=== PATIENT | male | born 1945 | race Caucasian/White ===

== ENCOUNTER 2018-10-30 09:18 | Emergency (ER) | payer MEDICARE, OTHER ==
--- NOTE | 2018-10-30 09:24 | ER Document Report ---
ED Medical Screen (RME) - General Chief Complaint: S/S of Possible Stroke Stated Complaint: POSSIBLE STROKE Time Seen by Provider: 10/30/18 09:22 Mode of Arrival: Ambulatory Information source: Patient TRAVEL OUTSIDE OF THE [place] IN LAST 30 DAYS: No - HPI Patient complains to provider of: L arm and face numbness Onset: Just prior to arrival - pt. has h/o tia and went to bed feeling fine but woke up with L arm and facial numbness Doctor's Discharge - Discharge Referrals: LAURA MONTES MD [Primary Care Provider] - Follow up as needed
--- NOTE | 2018-10-30 09:42 | ER Document Report ---
ED Neuro Symptoms/Deficit - General Mode of Arrival: Ambulatory TRAVEL OUTSIDE OF THE [place] IN LAST 30 DAYS: No <ANN BENITEZ - Last Filed: 10/30/18 10:09> - General Notes: This 72-year-old male patient with a past history of type 2 diabetes, hypertension, hyperlipidemia, who reports a TIA 10 years ago, states he woke up at 7:00 this morning and noted left-sided numbness and weakness to his face and arm and when he tried to stand up felt off balance and felt like he would fall to the left. He thinks it was due to weakness to the left lower extremity. He also said he had a dizzy sensation. At this time most of those symptoms have cleared and he has a small amount of numbness in the left hand around the second and third metacarpal heads. Exam shows no facial motor weakness, no speech problems. No thought concentrat ion problems. The left upper extremity is slightly weaker than the right when it is held out against resistance, the left lower extremity is similarly slightly weaker and takes more effort to hold up against resistance compared to the right. He does report that his symptoms do seem to be much better now than they were when he first woke up. He is not a TPA candidate due to the rapidly resolving motor deficits that he originally reported. <LÓPEZ HOLBROOK - Last Filed: 10/30/18 14:32> - General Chief Complaint: S/S of Possible Stroke Stated Complaint: POSSIBLE STROKE Time Seen by Provider: 10/30/18 09:22 - Related Data Allergies/Adverse Reactions: No Known Allergies Allergy (Verified 10/30/18 09:45) Past Medical History - General Information source: Patient - Social History Smoking Status: Former Smoker - quit x30-40 years ago Frequency of alcohol use: Rare Family History: Reviewed & Not Pertinent - Medical History Notes: Right sided weakness in December 2008 with normal MRI and MRA of [place] - Past Medical History Cardiac Medical History: Reports: Hx Hypercholesterolemia, Hx Hypertension Neurological Medical History: Reports: Other - Hx TIA Endocrine Medical History: Reports: Hx Diabetes Mellitus Type 2 <ANN BENITEZ - Last Filed: 10/30/18 10:09> Review of Systems - Review of Systems Constitutional: No symptoms reported EENT: No symptoms reported Cardiovascular: See HPI, Dizziness Respiratory: No symptoms reported Gastrointestinal: No symptoms reported Genitourinary: No symptoms reported Male Genitourinary: No symptoms reported Musculoskeletal: No symptoms reported Skin: No symptoms reported Hematologic/Lymphatic: No symptoms reported Neurological/Psychological: See HPI, Weakness - Initially left leg, arm, and face. nearly completely resolved now., Numbness - left -: Yes All other systems reviewed and negative <ANN BENITEZ - Last Filed: 10/30/18 10:09> Physical Exam - Vital signs Vitals: Pulse Resp BP Pulse Ox 82 22 H 148/92 H 98 10/30/18 09:35 10/30/18 09:35 10/30/18 09:35 10/30/18 09:35 - Notes Notes: Physical Exam: General: Alert, appears well. HEENT: Normocephalic. Atraumatic. PERRL. Extraocular movements intact. Oropharynx clear. No carotid bruits. Neck: Supple. Non-tender. Respiratory: No respiratory distress. Clear and equal breath sounds bilaterally. Cardiovascular: Regular rate and rhythm. Abdominal: Normal Inspection. Non-tender. No distension. Normal Bowel Sounds. Back: Non-tender. No deformity or step off. Extremities: Moves all four extremities. Upper extremities: Normal inspection. Normal ROM. Lower extremities: Normal inspection. No edema. Normal ROM. Neurological: Normal cognition. AAOx4. Normal speech. Cranial nerves II through XII grossly intact bilaterally. [id number] test intact bilaterally. The left upper extremity is slightly weaker than the right when it is held out against resistance, the left lower extremity is similarly slightly weaker and takes more effort to hold up against resistance compared to the right. He does report that his symptoms do seem to be much better now than they were when he first woke up. Psychological: Normal affect. Normal Mood. Skin: Warm. Dry. Normal color. <ANN BENITEZ - Last Filed: 10/30/18 10:09> - Vital signs Vitals: Temp Pulse Resp BP Pulse Ox 97.8 F 79 22 H 148/92 H 98 10/30/18 09:35 10/30/18 09:35 10/30/18 09:35 10/30/18 09:35 10/30/18 09:35 <LÓPEZ HOLBROOK - Last Filed: 10/30/18 14:32> Course - Vital Signs Vital signs: Temp Pulse Resp BP Pulse Ox 82 22 H 148/92 H 98 10/30/18 09:35 10/30/18 09:35 10/30/18 09:35 10/30/18 09:35 - Laboratory Result Diagrams: 10/30/18 09:33 10/30/18 09:33 <ANN BENITEZ - Last Filed: 10/30/18 10:09> - Re-evaluation Re-evalutation: 10/30/18 14:31 Transport is here for the patient at this time. His vital signs are stable. His exam remains essentially unchanged from earlier where he has only very subtl e left-sided weakness. He is stable for transport. - Vital Signs Vital signs: Temp Pulse Resp BP Pulse Ox 97.8 F 79 17 148/92 H 98 10/30/18 09:35 10/30/18 09:35 10/30/18 09:35 10/30/18 09:35 10/30/18 09:35 - Laboratory Result Diagrams: 10/30/18 09:33 10/30/18 09:33 - Diagnostic Test Radiology reviewed: Image reviewed, Reports reviewed - CT of the brain is unremarkable. MRI of the brain shows multiple areas of acute infarction in the right hemisphere indicating embolic phenomena. There is mild microvascular ischemia. - EKG Interpretation by [place] EKG shows normal: Sinus rhythm, [place], Intervals, ST-T Waves. abnormal: QRS Complexes - Old inferior Q's Rate: Normal - 80 Rhythm: NSR When compared to previous EKG there are: Previous EKG unavailable - Consults Dr. Angelo Time consulted: 12:00 Consulted provider: other - Will accept at [facility]. Continue any antiplatelet therapy the patient has been on, no new antiplatelet or anticoagulant medication for now. <LÓPEZ HOLBROOK - Last Filed: 10/30/18 14:32> Critical Care Note - Critical Care Note Total time excluding time spent on procedures (mins): 40 <LÓPEZ HOLBROOK - Last Filed: 10/30/18 14:32> ED [employer]/Exc Criteria ED NIH Stroke Scale Discharge <ANN BENITEZ - Last Filed: 10/30/18 10:09> - Discharge Scribe Attestation: 10/30/18 10:08 I personally performed the services described in the documentation, reviewed and edited the documentation which was dictated to the scribe in my presence, and it accurately records my words and actions. <LÓPEZ HOLBROOK - Last Filed: 10/30/18 14:32> - Discharge Clinical Impression: Acute cerebrovascular accident (CVA) Condition: Stable Disposition: [facility] Referrals: LAURA MONTES MD [NO LOCAL MD] - Follow up as needed Scribe Documentation - Scribe Written by Scribe:: Tasia Chappell, 10/30/2018 [id number] acting as scribe for :: Ponce <ANN BENITEZ - Last Filed: 10/30/18 10:09>
--- NOTE | 2018-10-30 09:45 | RADIOLOGY REPORT (SQ) ---
EXAM DESCRIPTION: CHEST SINGLE VIEW COMPLETED DATE/TIME: 10/30/2018 9:31 am REASON FOR STUDY: stroke alert COMPARISON: 12/22/2008 EXAM PARAMETERS: NUMBER OF VIEWS: One view. TECHNIQUE: Single frontal radiographic view of the chest acquired. RADIATION DOSE: NA LIMITATIONS: None. FINDINGS: LUNGS AND PLEURA: No opacities, masses or pneumothorax. No pleural effusion. MEDIASTINUM AND HILAR STRUCTURES: No masses. Contour normal. HEART AND VASCULAR STRUCTURES: Heart normal in size. Normal vasculature. BONES: No acute findings. HARDWARE: None in the chest. OTHER: No other significant finding. IMPRESSION: NO ACUTE RADIOGRAPHIC FINDING IN THE CHEST. TECHNICAL DOCUMENTATION: JOB ID: [id number] [employer]- All Rights Reserved Reading location - IP/workstation name: [email or web address]
[2018-10-30 09:50] LABS: HEMATOCRIT 43.6 % (37.9-51.0); HEMOGLOBIN 14.8 g/dL (13.5-17.0); MEAN CORPUSCULAR HEMOGLOBIN 30.9 pg (27.0-33.4); MEAN CORPUSCULAR VOLUME 91 fl (80-97); PLATELET COUNT 258 10^3/uL (150-450); RED BLOOD COUNT 4.79 10^6/uL (4.35-5.55); RED CELL DISTRIBUTION WIDTH 13.7 % (11.5-14.0); WHITE BLOOD COUNT 4.7 10^3/uL (4.0-10.5)
--- NOTE | 2018-10-30 09:50 | RADIOLOGY REPORT (SQ) ---
EXAM DESCRIPTION: CT HEAD WITHOUT COMPLETED DATE/TIME: 10/30/2018 9:27 am REASON FOR STUDY: stroke alert COMPARISON: 12/22/2008 TECHNIQUE: Axial images acquired through the brain without intravenous contrast. Images reviewed wi th bone, brain and subdural windows. Images stored on PACS. All CT scanners at this facility use dose modulation, iterative reconstruction, and/or weight based d osing when appropriate to reduce radiation dose to as low as reasonably achievable (ALARA). [facility]: Dose Right [facility]: CareDose [facility]: Dose Right [facility]: Teradose 4D [facility]: [employer] RADIATION DOSE: CT Rad equipment meets quality standard of care and radiation dose reduction techniq ues were employed. CTDIvol: 53.2 mGy. DLP: 1044 mGy-cm. mGy. LIMITATIONS: None. FINDINGS: VENTRICLES: Normal size and contour. CEREBRUM: No masses. No hemorrhage. No midline shift. No evidence for acute infarction. Normal gra y/white matter differentiation. No areas of low density in the white matter. CEREBELLUM: No masses. No hemorrhage. No alteration of density. No evidence for acute infarction. EXTRAAXIAL SPACES: No fluid collections. No masses. ORBITS AND GLOBE: No intra- or extraconal masses. Normal contour of globe without masses. CALVARIUM: No fracture. PARANASAL SINUSES: Retention cyst in the floor both maxillary antra. SOFT TISSUES: No mass or hematoma. OTHER: No other significant finding. IMPRESSION: NORMAL CT OF THE BRAIN WITHOUT CONTRAST. EVIDENCE OF ACUTE STROKE: NO. The findings were reported by phone to Dr. Mcintosh at 0941 hours. COMMENT: Quality ID # [id number]: Final reports with documentation of one or more dose reduction techniques (e.g., Automated exposure control, adjustment of the mA and/or kV according to patient size, use of iterative reconstruction technique) TECHNICAL DOCUMENTATION: JOB ID: [id number] 2010 [employer]- All Rights Reserved Reading location - IP/workstation name: [email or web address]
[2018-10-30 09:58] LABS: ALANINE AMINOTRANSFERASE 46 U/L (21-72); ALBUMIN 4.4 g/dL (3.5-5.0); ALKALINE PHOSPHATASE 99 U/L (38-126); ANION GAP 10 (5-19); ASPARTATE AMINO TRANSFERASE 28 U/L (17-59); BILIRUBIN,DIRECT 0.3 mg/dL (0.0-0.4); BILIRUBIN,TOTAL 0.6 mg/dL (0.2-1.3); BLOOD UREA NITROGEN 20 mg/dL (7-20); CALCIUM 9.8 mg/dL (8.4-10.2); CARBON DIOXIDE 24 mmol/L (22-30); CHLORIDE 107 mmol/L (98-107); GLUCOSE 196 mg/dL (75-110); POTASSIUM 4.6 mmol/L (3.6-5.0); SODIUM 141.3 mmol/L (137-145); TOTAL PROTEIN 6.8 g/dL (6.3-8.2)
[2018-10-30 10:02] LABS: CREATINE KINASE < 20 U/L (55-170)
[2018-10-30 10:07] LABS: ABSOLUTE LYMPHOCYTES# (MANUAL) 1.6 10^3/uL (0.5-4.7); ABSOLUTE MONOCYTES # (MANUAL) 0.4 10^3/uL (0.1-1.4); ABSOLUTE NEUTROPHILS# (MANUAL) 2.5 10^3/uL (1.7-8.2); BASOPHILS % (MANUAL) 0 % (0-2); EOSINOPHILS % (MANUAL) 5 % (0-6); LYMPHOCYTES % (MANUAL) 33 % (13-45); MONOCYTES % (MANUAL) 8 % (3-13); SEGMENTED NEUTROPHILS % (MAN) 54 % (42-78); TOTAL CELLS COUNTED 100
[2018-10-30 10:08] LABS: INTERNATIONAL RATION (INR) 0.94
[2018-10-30 10:08] LABS: PLATELET COMMENT ADEQUATE
[2018-10-30 10:09] LABS: PARTIAL THROMBOPLASTIN TIME 29.2 SEC (23.5-35.8)
[2018-10-30 10:10] LABS: CREATINE KINASE MB 1.27 ng/mL (<4.55)
[2018-10-30 10:11] LABS: TROPONIN I < 0.012 ng/mL
--- NOTE | 2018-10-30 10:46 | RADIOLOGY REPORT (SQ) ---
EXAM DESCRIPTION: MRI HEAD WITHOUT COMPLETED DATE/TIME: 10/30/2018 10:34 am REASON FOR STUDY: Acute left-sided weakness COMPARISON: CT same date TECHNIQUE: Multiplanar imaging includes non-contrasted T1, T2, FLAIR, and Diffusion with ADC map seq uences. Images stored on PACS. LIMITATIONS: None. FINDINGS: ANATOMY: No anomalies. Normal vascular flow voids. Pituitary fossa normal. CSF SPACES: Normal in size and contour. No hemorrhage. CEREBRUM: A few high-signal intensity lesions scattered throughout the white matter on FLAIR imaging with distribution suggesting chronic micro-vascular ischemic change. Sulci and gyri normal in size a nd contour. No evidence of hemorrhage, mass or extraaxial fluid collection. POSTERIOR FOSSA: Mild zachery small vessel ischemia. . No hemorrhage. No edema, masses or mass effect. Internal auditory canals, cerebello-pontine angles, mastoids normal. DIFFUSION: There are multiple areas of restricted diffusion throughout the right hemisphere. ORBITS: No masses. Globes normal. PARANASAL SINUSES: No fluid levels. Mucosa normal. OTHER: No other significant finding. IMPRESSION: Multiple areas of acute infarction in the right hemisphere indicating embolic phenomena. Mild microvascular ischemia. EVIDENCE OF ACUTE STROKE: YES. Embolic TECHNICAL DOCUMENTATION: JOB ID: [id number] [employer]- All Rights Reserved Reading location - IP/workstation name: [email or web address]
[2018-10-30] MEDS ORDERED: ASPIRIN 81 MG TABLET, CHEWABLE PO ONE (12:08)
[2018-10-30] MEDS ORDERED: NORMAL SALINE 1000 ML 1,000 ML IV ONE (12:09)
[2018-10-30 14:51] VITALS: BP 148/98
--- NOTE | 2018-10-30 15:07 | EKG REPORT ---
SEVERITY:- ABNORMAL ECG - SINUS RHYTHM PROBABLE INFERIOR INFARCT, OLD : Confirmed by: Jeovanny Mcarthur MD 30-Oct-2018 15:06:39
== END 2018-10-30 14:40 | disposition short-term general hospital (02) ==
LOC: ER 09:18
DX: I63.9 Cerebral infarction, unspecified (principal); R53.1 Weakness; R42 Dizziness and giddiness; E11.9 Type 2 diabetes mellitus without complications; I10 Essential (primary) hypertension; E78.5 Hyperlipidemia, unspecified; Z86.73 Personal history of transient ischemic attack (TIA), and cerebral infarction without residual deficits; Z87.891 Personal history of nicotine dependence
CPT/HCPCS: 93005; 99291; 96360; 36415; 82553; 82550; 85025; 85610; 85730; 80053; 84484; 70551; 71045; 70450; 93010; A9270; J7030

== ENCOUNTER → 2018-12-01 | Outpatient (CLI) | payer MEDICARE, OTHER ==
--- NOTE | 2018-12-01 13:40 | RADIOLOGY REPORT (SQ) ---
EXAM DESCRIPTION: KUB COMPLETED DATE/TIME: 12/01/2018 1:25 pm REASON FOR STUDY: HEMATURIA, UNSPECIFIED R31.9 HEMATURIA, UNSPECIFIED COMPARISON: None. NUMBER OF VIEWS: One view. TECHNIQUE: Supine radiographic image of the abdomen acquired. LIMITATIONS: None. FINDINGS: BOWEL GAS PATTERN: Normal bowel gas pattern. No dilated loops. CALCIFICATIONS: Staghorn calculus in lower calices of the right kidney. SOFT TISSUES: No gross mass or suggestion of organomegaly. HARDWARE: None in the abdomen. BONES: No acute fracture. No worrisome bone lesions. OTHER: No other significant finding. IMPRESSION: Right staghorn calculus. TECHNICAL DOCUMENTATION: JOB ID: [id number] [employer]- All Rights Reserved Reading location - IP/workstation name: [email or web address]
== END ==
LOC: OD 13:12
PROVIDERS: ATTEND Physician Assistant
DX: R31.9 Hematuria, unspecified (principal)
CPT/HCPCS: 74018

== ENCOUNTER → 2018-12-02 | Outpatient (CLI) | payer MEDICARE, OTHER ==
[2018-12-02 10:37] LABS: ALANINE AMINOTRANSFERASE 31 U/L (21-72); ALBUMIN 4.3 g/dL (3.5-5.0); ALKALINE PHOSPHATASE 94 U/L (38-126); ANION GAP 11 (5-19); ASPARTATE AMINO TRANSFERASE 19 U/L (17-59); BILIRUBIN,DIRECT 0.3 mg/dL (0.0-0.4); BILIRUBIN,TOTAL 0.8 mg/dL (0.2-1.3); BLOOD UREA NITROGEN 20 mg/dL (7-20); CALCIUM 10.3 mg/dL (8.4-10.2); CARBON DIOXIDE 26 mmol/L (22-30); CHLORIDE 101 mmol/L (98-107); GLUCOSE 276 mg/dL (75-110); POTASSIUM 4.8 mmol/L (3.6-5.0); SODIUM 137.9 mmol/L (137-145); TOTAL PROTEIN 6.5 g/dL (6.3-8.2)
== END ==
LOC: OD 09:14
PROVIDERS: ATTEND Physician Assistant
DX: E11.9 Type 2 diabetes mellitus without complications (principal)
CPT/HCPCS: 36415; 80053

== ENCOUNTER 2019-06-12 16:38 | Inpatient (IN) | payer MEDICARE, OTHER ==
[2019-06-12] MEDS ORDERED: NORMAL SALINE 1000 ML 1,000 ML IV ONE (17:29)
[2019-06-12] MEDS ORDERED: CEFAZOLIN 1 GM/D5W RTU 1 GM/50 ML RTUPB IV ONE (17:32)
[2019-06-12] MEDS ORDERED: METRONIDAZOLE 500 MG/NS RTU 500 MG/100 ML RTUPB IV ONE (17:44)
--- NOTE | 2019-06-12 18:01 | ER Document Report ---
ED GI/ - General Chief Complaint: Lower Abdominal Pain Stated Complaint: RIGHT LOW ABDOMINAL PAIN Time Seen by Provider: 06/12/19 17:15 Primary Care Provider: NELI PAYAN PA-C [Primary Care Provider] - Follow up as needed Notes: Patient had an outpatient CT scan with IV and oral contrast as an outpatient today which showed a ruptured appendix with a 2.5 cm abscess. Patient says that he has been having some abdominal pains off and on over the last 2 to 3 weeks, but was traveling around [place] and did not get back home until just 3 days ago. Over the weekend, his pain is intensified. He went to see his primary care provider today who ordered the outpatient study showing the ruptured appendix. Patient has not had any nausea or vomiting. No change in bowel habits. No fevers. Last food was about 10:30 AM this morning. No prior abdominal surgeries. No allergies. TRAVEL OUTSIDE OF THE [place] IN LAST 30 DAYS: No COUNTRY TRAVELED TO/FROM: [place]/[facility] - Related Data Allergies/Adverse Reactions: No Known Allergies Allergy (Verified 06/12/19 16:39) Past Medical History - Social History Smoking Status: Unknown if Ever Smoked Family History: Reviewed & Not Pertinent - Past Medical History Cardiac Medical History: Reports: Hx Hypercholesterolemia, Hx Hypertension Endocrine Medical History: Reports: Hx Diabetes Mellitus Type 2 Past Surgical History: Reports: Hx Orthopedic Surgery - Right TKR Review of Systems - Review of Systems Notes: REVIEW OF SYSTEMS: CONSTITUTIONAL : Denies fever. EENT: Denies eye, ear, nose or mouth or throat pain or other symptoms. CARDIOVASCULAR: Denies chest pain. RESPIRATORY: Denies cough, chest congestion, or shortness of breath. GASTROINTESTINAL: See HPI. GENITOURINARY: Denies difficulty or painful urinating, urinary frequency, blood in urine. MUSCULOSKELETAL: Denies back or neck pain. Denies joint pain or swelling. SKIN: Denies rash or skin lesions. NEUROLOGICAL: Denies LOC or altered mental status. Denies headache. Denies sensory loss or motor deficits. ALL OTHER SYSTEMS REVIEWED AND NEGATIVE. Physical Exam - Vital signs Vitals: Temp Pulse Resp BP Pulse Ox 97.9 F 87 18 136/66 H 97 06/12/19 16:43 06/12/19 16:43 06/12/19 16:43 06/12/19 16:43 06/12/19 16:43 Interpretation: Normal. No: Febrile Notes: PHYSICAL EXAMINATION: GENERAL: Well-appearing, in no acute distress. Vital signs are all normal. Patient appears to be in good health and younger than his stated age. HEAD: Atraumatic, normocephalic. EYES: Pupils equal round and reactive to light, extraocular movements intact. ENT: oropharynx clear without exudates. Moist mucous membranes. NECK: Normal range of motion, supple. LUNGS: Breath sounds clear and equal bilaterally. HEART: Regular rate and rhythm without murmurs. ABDOMEN: Soft, tender in the right lower quadrant, in particular specifically over McBurney's point, very tender to touch at all. Some guarding present. No rebound. No masses felt. No bruits heard. EXTREMITIES: Normal range of motion without pain. NEUROLOGICAL: Normal speech, normal gait. Normal sensory, motor, and reflex exams. Awake, alert, and oriented x3. PSYCH: Normal mood, normal affect. SKIN: Warm, dry, no rashes. Course - Re-evaluation Re-evalutation: 06/12/19 18:[address] Campbell, surgeon fabrication inspector, and he will see the patient. Lab studies are being ordered. Patient is being given Ancef and Flagyl. N.p.o. 06/12/19 19:[address] Campbell and will be admitted for IV antibiotics. - Vital Signs Vital signs: Temp Pulse Resp BP Pulse Ox 97.9 F 87 17 137/88 H 95 06/12/19 16:43 06/12/19 16:43 06/12/19 18:01 06/12/19 18:01 06/12/19 18:01 - Laboratory Result Diagrams: 06/12/19 17:25 06/12/19 17:25 Laboratory results interpreted by me: 06/12/19 06/12/19 17:25 17:25 RBC 3.99 L Hgb 11.8 L Hct 34.9 L RDW 14.2 H Glucose 132 H Total Protein 5.8 L Albumin 3.3 L Discharge - Discharge Clinical Impression: Ruptured appendix, Appendicitis with abscess Condition: Stable Disposition: ADMITTED INPATIENT Admitting Provider: Surgicalist Unit Admitted: Surgical Floor Referrals: NELI PAYAN PA-C [Primary Care Provider] - Follow up as needed
[2019-06-12 18:19] LABS: ABSOLUTE EOSINOPHILS # (AUTO) 0.1 10^3/uL (0.0-0.6); ABSOLUTE LYMPHOCYTES (AUTO) 1.5 10^3/uL (0.5-4.7); ABSOLUTE MONOCYTES (AUTO) 0.5 10^3/uL (0.1-1.4); ABSOLUTE NEUT (AUTO) 3.1 10^3/uL (1.7-8.2); BASOPHILS % (AUTO) 0.9 % (0-2); EOSINOPHILS % (AUTO) 2.5 % (0-6); HEMATOCRIT 34.9 % (37.9-51.0); HEMOGLOBIN 11.8 g/dL (13.5-17.0); LYMPHOCYTES % (AUTO) 27.8 % (13-45); MEAN CORPUSCULAR HEMOGLOBIN 29.5 pg (27.0-33.4); MEAN CORPUSCULAR HGB CONC 33.7 g/dL (32.0-36.0); MEAN CORPUSCULAR VOLUME 88 fl (80-97); MONOCYTES % (AUTO) 9.1 % (3-13); PLATELET COUNT 379 10^3/uL (150-450); RED BLOOD COUNT 3.99 10^6/uL (4.35-5.55); RED CELL DISTRIBUTION WIDTH 14.2 % (11.5-14.0); SEGMENTED NEUTROPHILS % (AUTO) 59.7 % (42-78); TOTAL CELLS COUNTED % (AUTO) 100 %; WHITE BLOOD COUNT 5.3 10^3/uL (4.0-10.5)
[2019-06-12 18:49] LABS: ALBUMIN 3.3 g/dL (3.5-5.0); ALKALINE PHOSPHATASE 85 U/L (38-126); ANION GAP 11 (5-19); ASPARTATE AMINO TRANSFERASE 17 U/L (17-59); BILIRUBIN,DIRECT 0.2 mg/dL (0.0-0.4); BILIRUBIN,TOTAL 0.2 mg/dL (0.2-1.3); BLOOD UREA NITROGEN 15 mg/dL (7-20); CALCIUM 9.5 mg/dL (8.4-10.2); CARBON DIOXIDE 27 mmol/L (22-30); CHLORIDE 101 mmol/L (98-107); GLUCOSE 132 mg/dL (75-110); POTASSIUM 4.3 mmol/L (3.6-5.0); TOTAL PROTEIN 5.8 g/dL (6.3-8.2)
[2019-06-12 19:01] LABS: APPEARANCE,URINE CLEAR; BILIRUBIN,URINE NEGATIVE (NEGATIVE); COLOR,URINE YELLOW; GLUCOSE, URINE 50 mg/dL (NEGATIVE); KETONES,URINE NEGATIVE (NEGATIVE); LEUKOCYTE ESTERASE,URINE TRACE (NEGATIVE); NITRITE,URINE NEGATIVE (NEGATIVE); PROTEIN,URINE NEGATIVE (NEGATIVE); URINE SPECIFIC GRAVITY 1.055; UROBILINOGEN,URINE NEGATIVE mg/dL (<2.0)
[2019-06-12] MEDS ORDERED: POTASSI CL 20 MEQ/D5-1/2NS 1L 1,000 ML IV PRN (19:26)
[2019-06-12] MEDS ORDERED: MORPHINE SULFATE 10 MG/ML INJ IV PRN (19:26)
[2019-06-12] MEDS ORDERED: ACETAMINOPHEN 325 MG TABLET PO PRN (19:26)
--- NOTE | 2019-06-12 19:26 | PDOC H&P ---
History of Present Illness Admission Date/PCP: 06/12/19 19:13 NELI PAYAN PA-C Patient complains of: abdominal pain History of Present Illness: HALEY KENNEDY is a 73 year old malePatient had an outpatient CT scan with IV and oral contrast as an outpatient today which showed a ruptured appendix with a 2.5 cm abscess. Patient says that he has been having some abdominal pains off and on over the last 2 to 3 weeks, but was traveling around [place] and did not get back home until just 3 days ago. Over the weekend, his pain is intensified. He went to see his primary care provider today who ordered the outpatient study showing the ruptured appendix. Patient has not had any nausea or vomiting. No change in bowel habits. No fevers. Last food was about 10:30 AM this morning. No prior abdominal surgeries Past Medical History Cardiac Medical History: Reports: Hyperlipidema, Hypertension Endocrine Medical History: Reports: Diabetes Mellitus Type 2 Past Surgical History Past Surgical History: Reports: Orthopedic Surgery - Right TKR Social History Smoking Status: Unknown if Ever Smoked Family History Family History: Reviewed & Not Pertinent Parental Family History Reviewed: No Children Family History Reviewed: NA Sibling(s) Family History Reviewed.: NA Medication/Allergy Home Medications: Amlodipine Besylate [Norvasc 5 mg Tablet] 5 mg PO DAILY 10/30/18 Atorvastatin Calcium [Lipitor 20 mg Tablet] 20 mg PO QHS 10/30/18 Esomeprazole Magnesium 20 mg PO DAILY 10/30/18 Fexofenadine HCl 180 mg PO DAILY 10/30/18 Losartan Potassium 100 mg PO DAILY 10/30/18 Meloxicam [Mobic] 15 mg PO DAILY 10/30/18 Metformin HCl 500 mg PO DAILY 10/30/18 Allergies/Adverse Reactions: No Known Allergies Allergy (Verified 06/12/19 16:39) Review of Systems Constitutional: ABSENT: chills, fever(s), headache(s), weight gain, weight loss Eyes: ABSENT: visual disturbances Ears: ABSENT: hearing changes Cardiovascular: ABSENT: chest pain, dyspnea on exertion, edema, orthropnea, palpitations Respiratory: ABSENT: cough, hemoptysis Gastrointestinal: PRESENT: other - abdominal pain Musculoskeletal: ABSENT: joint swelling Integumentary: ABSENT: rash, wounds Neurological: ABSENT: abnormal gait, abnormal speech, confusion, dizziness, focal weakness, syncope Psychiatric: ABSENT: as per HPI, anxiety, depression, hallucinations, homidical ideation, suicidal ideation, other Hematologic/Lymphatic: ABSENT: easy bleeding, easy bruising Allergic/Immunologic: ABSENT: as per HPI, seasonal rhinorrhea, other Physical Exam Vital Signs: Temp Pulse Resp BP Pulse Ox 97.9 F 87 17 137/88 H 95 06/12/19 16:43 06/12/19 16:43 06/12/19 18:01 06/12/19 18:01 06/12/19 18:01 Intake & Output 06/11/19 06/12/19 06/13/19 06:59 06:59 06:59 Intake Total 50 Balance 50 Weight 90.2 kg General appearance: PRESENT: mild distress Head exam: PRESENT: normocephalic Eye exam: PRESENT: EOMI Mouth exam: PRESENT: moist Neck exam: PRESENT: full ROM Respiratory exam: PRESENT: clear to auscultation jorge Cardiovascular exam: PRESENT: RRR Pulses: PRESENT: normal radial pulses, normal femoral pulses, normal dorsalis pedis pul GI/Abdominal exam: PRESENT: tenderness - suprpubic, rlq Rectal exam: PRESENT: deferred Extremities exam: PRESENT: full ROM Musculoskeletal exam: PRESENT: full ROM Neurological exam: PRESENT: alert, awake, oriented to person Psychiatric exam: PRESENT: appropriate affect Skin exam: PRESENT: dry Results Laboratory Results: 06/12/19 17:25 06/12/19 17:25 06/12/19 06/12/19 06/12/19 17:25 17:25 17:44 WBC 5.3 RBC 3.99 L Hgb 11.8 L Hct 34.9 L MCV 88 MCH 29.5 MCHC 33.7 RDW 14.2 H Plt Count 379 Seg Neutrophils % 59.7 Lymphocytes % 27.8 Monocytes % 9.1 Eosinophils % 2.5 Basophils % 0.9 Absolute Neutrophils 3.1 Absolute Lymphocytes 1.5 Absolute Monocytes 0.5 Absolute Eosinophils 0.1 Absolute Basophils 0.0 Sodium 139.3 Potassium 4.3 Chloride 101 Carbon Dioxide 27 Anion Gap 11 BUN 15 Creatinine 0.91 Est GFR ( Amer) > 60 Est GFR (Non-Af Amer) > 60 Glucose 132 H Calcium 9.5 Total Bilirubin 0.2 AST 17 Alkaline Phosphatase 85 Total Protein 5.8 L Albumin 3.3 L Lipase 202.7 Urine Color YELLOW Urine Appearance CLEAR Urine pH 5.0 Ur Specific [place] 1.055 Urine Protein NEGATIVE Urine Glucose (UA) 50 H Urine Ketones NEGATIVE Urine Blood NEGATIVE Urine Nitrite NEGATIVE Ur Leukocyte Esterase TRACE H Urine WBC (Auto) 6 Urine RBC (Auto) 1 Assessment & Plan - Plan Summary Plan Summary: Impression ruptured appendicitis with this 2.5 cm abscess and 5 cm phlegmon I had a long discussion with the patient and his about immediate surgery versus delayed interval appendectomy with the risks of a possible colonic resection and currently the patient with minimal symptoms he is elected to undergo a delayed interval appendectomy therefore we will admit him to the hospital for IV antibiotics and observation
[2019-06-12] MEDS ORDERED: GLUCAGON,HUMAN RECOMB 1 MG INJ IM PRN (19:33)
[2019-06-12] MEDS ORDERED: DEXTROSE 50%-WATER 25 GM/50 ML DISP.SYRIN IV PRN ×2 (19:33)
[2019-06-12] MEDS ORDERED: DEXTROSE 40% GEL 15 GM TUBE PO PRN ×2 (19:33)
[2019-06-12] MEDS ORDERED: BISACODYL 10 MG SUPP.RECT PR ONE (20:30)
[2019-06-12] MEDS: FAMOTIDINE INJ/PF 20 MG/2 ML SDV IV SCH (21:41)
[2019-06-13] MEDS: PIPERACILLIN SODIUM/TAZOBACTAM 3.375 GM in NORMAL SALINE 100 ML IV SCH ×5 (00:19→23:56)
[2019-06-13] MEDS: INSULIN REG, HUMAN 100 UNIT/ML 3 ML VIAL (PYX) SUBCUT SCH ×4 (00:36→17:58)
[2019-06-13] MEDS: METRONIDAZOLE 500 MG/NS RTU 500 MG/100 ML RTUPB IV SCH ×3 (02:19→18:33)
[2019-06-13] MEDS ORDERED: PIPERACILLIN/TAZOBACTAM 3.375 GM VIAL IV ONE (05:18)
[2019-06-13 05:52] LABS: ABSOLUTE EOSINOPHILS # (AUTO) 0.1 10^3/uL (0.0-0.6); ABSOLUTE LYMPHOCYTES (AUTO) 1.5 10^3/uL (0.5-4.7); ABSOLUTE MONOCYTES (AUTO) 0.5 10^3/uL (0.1-1.4); ABSOLUTE NEUT (AUTO) 3.2 10^3/uL (1.7-8.2); BASOPHILS % (AUTO) 0.9 % (0-2); EOSINOPHILS % (AUTO) 2.6 % (0-6); HEMATOCRIT 32.8 % (37.9-51.0); HEMOGLOBIN 11.1 g/dL (13.5-17.0); LYMPHOCYTES % (AUTO) 27.8 % (13-45); MEAN CORPUSCULAR HEMOGLOBIN 29.3 pg (27.0-33.4); MEAN CORPUSCULAR HGB CONC 33.9 g/dL (32.0-36.0); MEAN CORPUSCULAR VOLUME 87 fl (80-97); MONOCYTES % (AUTO) 9.3 % (3-13); PLATELET COUNT 345 10^3/uL (150-450); RED BLOOD COUNT 3.79 10^6/uL (4.35-5.55); RED CELL DISTRIBUTION WIDTH 14.4 % (11.5-14.0); SEGMENTED NEUTROPHILS % (AUTO) 59.4 % (42-78); TOTAL CELLS COUNTED % (AUTO) 100 %; WHITE BLOOD COUNT 5.3 10^3/uL (4.0-10.5)
[2019-06-13 06:05] LABS: ANION GAP 9 (5-19); BLOOD UREA NITROGEN 13 mg/dL (7-20); CARBON DIOXIDE 26 mmol/L (22-30); CHLORIDE 105 mmol/L (98-107); GLUCOSE 132 mg/dL (75-110); POTASSIUM 4.7 mmol/L (3.6-5.0)
--- NOTE | 2019-06-13 07:45 | EKG REPORT ---
SEVERITY:- BORDERLINE ECG - SINUS RHYTHM PROBABLE LEFT ATRIAL ABNORMALITY : Confirmed by: Jeovanny Mcarthur MD 13-Jun-2019 07:44:19
[2019-06-13] MEDS: FAMOTIDINE INJ/PF 20 MG/2 ML SDV IV SCH ×2 (10:58→21:49)
--- NOTE | 2019-06-13 21:50 | PDOC PROGRESS REPORT ---
Subjective Progress Note for:: 06/13/19 Subjective:: 73 y/o M with a 3 weeks h/o abdominal pain. He was found to have a contained perforation of his appendix. He was started on abx. He reports feeling better today. He is hungry. His pain has resolved. He denies nausea, vomiting, fevers, chills, CP, SOB, dizziness, orthostasis, headache. Reason For Visit: RUPTURED APPENDICITIS Physical Exam Vital Signs: Temp Pulse Resp BP Pulse Ox 98.0 F 72 17 131/68 H 97 06/13/19 19:27 06/13/19 19:27 06/13/19 19:27 06/13/19 19:27 06/13/19 19:27 Intake & Output 06/12/19 06/13/19 06/14/19 06:59 06:59 06:59 Intake Total 350 900 Balance 350 900 Weight 89.4 kg General appearance: PRESENT: no acute distress, cooperative Head exam: PRESENT: atraumatic, normocephalic Eye exam: PRESENT: EOMI, PERRLA. ABSENT: scleral icterus Mouth exam: PRESENT: neck supple Teeth exam: ABSENT: poor dentation Neck exam: ABSENT: meningismus, tenderness, thyromegaly, tracheal deviation Respiratory exam: PRESENT: unlabored. ABSENT: tachypnea, wheezes Cardiovascular exam: PRESENT: RRR Pulses: PRESENT: normal radial pulses GI/Abdominal exam: PRESENT: soft. ABSENT: distended, tenderness Rectal exam: PRESENT: deferred Extremities exam: ABSENT: clubbing Musculoskeletal exam: ABSENT: deformity Neurological exam: PRESENT: alert, awake, oriented to person, oriented to place, oriented to time, oriented to situation Psychiatric exam: ABSENT: agitated, anxious, depressed Focused psych exam: ABSENT: delusional Skin exam: ABSENT: cyanosis, erythema, jaundice Results Laboratory Results: 06/13/19 04:14 06/13/19 04:14 06/13/19 06/13/19 04:14 04:14 WBC 5.3 RBC 3.79 L Hgb 11.1 L Hct 32.8 L MCV 87 MCH 29.3 MCHC 33.9 RDW 14.4 H Plt Count 345 Seg Neutrophils % 59.4 Lymphocytes % 27.8 Monocytes % 9.3 Eosinophils % 2.6 Basophils % 0.9 Absolute Neutrophils 3.2 Absolute Lymphocytes 1.5 Absolute Monocytes 0.5 Absolute Eosinophils 0.1 Absolute Basophils 0.0 Sodium 140.3 Potassium 4.7 Chloride 105 Carbon Dioxide 26 Anion Gap 9 BUN 13 Creatinine 0.90 Est GFR ( Amer) > 60 Est GFR (Non-Af Amer) > 60 Glucose 132 H Calcium 9.0 Assessment & Plan - Diagnosis (1) Appendicitis with abscess Is this a current diagnosis for this admission?: Yes - Plan Summary Plan Summary: 73 y/o M with appendicitis. He has chosen abx in the acute setting with interval appendectomy afterward. His pain has resolved. He is hungry today. I will allow him to have a regular diet. Cont IV Abx. Possible D/c tomorrow on PO abx if he continues to improve clinically.
[2019-06-14] MEDS: INSULIN REG, HUMAN 100 UNIT/ML 3 ML VIAL (PYX) SUBCUT SCH ×2 (00:14→05:52)
[2019-06-14] MEDS: METRONIDAZOLE 500 MG/NS RTU 500 MG/100 ML RTUPB IV SCH ×2 (01:45→10:15)
[2019-06-14 05:59] LABS: ABSOLUTE EOSINOPHILS # (AUTO) 0.2 10^3/uL (0.0-0.6); ABSOLUTE LYMPHOCYTES (AUTO) 1.7 10^3/uL (0.5-4.7); ABSOLUTE MONOCYTES (AUTO) 0.5 10^3/uL (0.1-1.4); ABSOLUTE NEUT (AUTO) 2.7 10^3/uL (1.7-8.2); BASOPHILS % (AUTO) 0.6 % (0-2); EOSINOPHILS % (AUTO) 3.6 % (0-6); HEMATOCRIT 34.1 % (37.9-51.0); HEMOGLOBIN 11.4 g/dL (13.5-17.0); LYMPHOCYTES % (AUTO) 32.9 % (13-45); MEAN CORPUSCULAR HGB CONC 33.5 g/dL (32.0-36.0); MEAN CORPUSCULAR VOLUME 87 fl (80-97); MONOCYTES % (AUTO) 8.9 % (3-13); PLATELET COUNT 345 10^3/uL (150-450); RED BLOOD COUNT 3.94 10^6/uL (4.35-5.55); RED CELL DISTRIBUTION WIDTH 14.2 % (11.5-14.0); TOTAL CELLS COUNTED % (AUTO) 100 %; WHITE BLOOD COUNT 5.1 10^3/uL (4.0-10.5)
[2019-06-14] MEDS: PIPERACILLIN SODIUM/TAZOBACTAM 3.375 GM in NORMAL SALINE 100 ML IV SCH (06:01)
[2019-06-14 06:17] LABS: ANION GAP 7 (5-19); BLOOD UREA NITROGEN 13 mg/dL (7-20); CALCIUM 9.1 mg/dL (8.4-10.2); CARBON DIOXIDE 27 mmol/L (22-30); CHLORIDE 105 mmol/L (98-107); GLUCOSE 142 mg/dL (75-110); POTASSIUM 4.3 mmol/L (3.6-5.0)
[2019-06-14 09:34] VITALS: BP 131/73
--- NOTE | 2019-06-14 09:37 | PDOC DISCHARGE SUMMARY ---
General - Admit/Disc Date/PCP Admission Date/Primary Care Provider: 06/12/19 19:13 NELI PAYAN PA-C Discharge Date: 06/14/19 - Discharge Diagnosis (1) Appendicitis with abscess Is this a current diagnosis for this admission?: Yes - Additional Information Resuscitation Status: Full Code Discharge Diet: As Tolerated Discharge Activity: Activity As Tolerated Home Medications: Amlodipine Besylate [Norvasc 5 mg Tablet] 5 mg PO DAILY 10/30/18 Fexofenadine HCl 180 mg PO DAILY 10/30/18 Losartan Potassium 100 mg PO DAILY 10/30/18 Atorvastatin Calcium [Lipitor 80 mg Tablet] 80 mg PO QHS 06/12/19 Clopidogrel Bisulfate [Plavix 75 mg Tablet] 75 mg PO DAILY 06/12/19 Metformin HCl [Metformin HCl ER] 500 mg PO BID 06/12/19 Pantoprazole Sodium [Protonix [address] Tablet] 20 mg PO QAM 06/12/19 Sitagliptin Phosphate [Januvia 50 mg Tablet] 50 mg PO DAILY 06/12/19 Tamsulosin HCl [Flomax 0.4 mg Cap.sr] 0.4 mg PO DAILY 06/12/19 History of Present Illness History of Present Illness: HALEY KENNEDY is a 73 year old male admitted with a history of 3-week duration right lower quadrant abdominal pain. The patient was found to have complicated appendicitis, with periappendiceal phlegmon/abscess. The patient was admitted to the hospital for intravenous antibiotics. At the time, the patient opted for nonsurgical management. Hospital Course Hospital Course: The patient was admitted to hospital, begun on intravenous antibiotics, and defervesced quickly. The patient was feeling well on 06/13/2019 and was begun on a regular diet. Patient tolerated the regular diet well. He is ambulating, stooling, eating without difficulty, and denied pain on 06/14/2019. At this time the patient is felt to have reached maximal hospital benefit. He is medically fit for discharge. Physical Exam Vital Signs: Temp Pulse Resp BP Pulse Ox 97.5 F 68 16 131/73 H 97 06/14/19 09:32 06/14/19 09:32 06/14/19 09:32 06/14/19 09:32 06/14/19 09:32 Intake & Output 08/06/19 08/07/19 08/08/19 06:59 06:59 06:59 Intake Total 350 1650 100 Balance 350 1650 100 Weight 89.4 kg 94.4 kg Results Laboratory Results: 06/14/19 05:36 06/14/19 05:36 06/14/19 06/14/19 05:36 05:36 WBC 5.1 RBC 3.94 L Hgb 11.4 L Hct 34.1 L MCV 87 MCH 29.0 MCHC 33.5 RDW 14.2 H Plt Count 345 Seg Neutrophils % 54.0 Lymphocytes % 32.9 Monocytes % 8.9 Eosinophils % 3.6 Basophils % 0.6 Absolute Neutrophils 2.7 Absolute Lymphocytes 1.7 Absolute Monocytes 0.5 Absolute Eosinophils 0.2 Absolute Basophils 0.0 Sodium 139.3 Potassium 4.3 Chloride 105 Carbon Dioxide 27 Anion Gap 7 BUN 13 Creatinine 0.96 Est GFR ( Amer) > 60 Est GFR (Non-Af Amer) > 60 Glucose 142 H Calcium 9.1 Qualifiers - * PATIENT BEING DISCHARGED WITH ANY OF THE FOLLOWING DIAGNOSIS: No Acute Heart Failure - Is this a Heart Failure Patient?: No Plan Discharge Plan: Discharge home. Diet as tolerated. Activity: As tolerated. Follow-up with Dr. Campbell next week to schedule interval appendectomy. Okay to shower. Augmentin 875 mg p.o. twice daily x7 days. Flagyl 500 mg p.o. 3 times daily x7 days. Time Spent: Less than 30 Minutes
[2019-06-14] MEDS ORDERED: CLOPIDOGREL BISULFATE 75 MG TABLET PO SCH (10:00)
[2019-06-14] MEDS: FAMOTIDINE INJ/PF 20 MG/2 ML SDV IV SCH (10:16)
== END 2019-06-14 10:51 | disposition home or self-care (01) | DRG 373 ==
LOC: ER 16:38 → EH 19:13 → 5 23:18
PROVIDERS: ADMIT Surgery; ATTEND Surgery
DX: K35.33 Acute appendicitis with perforation, localized peritonitis, and gangrene, with abscess (principal); E11.8 Type 2 diabetes mellitus with unspecified complications; I10 Essential (primary) hypertension; E78.00 Pure hypercholesterolemia, unspecified; Z96.651 Presence of right artificial knee joint; Z79.84 Long term (current) use of oral hypoglycemic drugs; Z79.899 Other long term (current) drug therapy
CPT/HCPCS: 36415; 71275; 74177; 80048; 80053; 81001; 82565; 82962; 83690; 85025; 87040; 93005; 93010; 96365; 99285; J0690; J1815; J2543; J3480; J3490; J7030; J7050; S0028

== ENCOUNTER → 2019-06-29 | Outpatient (CLI) | payer MEDICARE, OTHER ==
--- NOTE | 2019-06-29 09:07 | RADIOLOGY REPORT (SQ) ---
EXAM DESCRIPTION: CT ABD/PELVIS ORAL ONLY COMPLETED DATE/TIME: 06/29/2019 7:34 am REASON FOR STUDY: PERFORATED APPENDIX (K35.32) K35.32 ACUTE APPENDICITIS WITH PERF AND LOC PERITONI TIS, W/O COMPARISON: 06/12/2019 TECHNIQUE: CT scan of the abdomen and pelvis performed with oral contrast and no intravenous contras t. Images reviewed with lung, soft tissue, and bone windows. Reconstructed coronal and sagittal MPR i mages reviewed. All images stored on PACS. All CT scanners at this facility use dose modulation, iterative reconstruction, and/or weight based d osing when appropriate to reduce radiation dose to as low as reasonably achievable (ALARA). [facility]: Dose Right [facility]: CareDose [facility]: Dose Right [facility]: Teradose 4D [facility]: [employer] Biopolymer RADIATION DOSE: CT Rad equipment meets quality standard of care and radiation dose reduction techniq ues were employed. CTDIvol: 12.1 mGy. DLP: 663 mGy-cm. mGy. LIMITATIONS: None. FINDINGS: LOWER CHEST: No significant findings. No nodules or infiltrates. NON-CONTRASTED LIVER, SPLEEN, ADRENALS: Evaluation limited by lack of IV contrast. No identified sign ificant masses. PANCREAS: No masses. No peripancreatic inflammatory changes. GALLBLADDER: No identified stones by CT criteria. No inflammatory changes to suggest cholecystitis. RIGHT KIDNEY AND URETER: No suspicious masses. Assessment limited by lack of IV contrast. No signif icant calcifications. No hydronephrosis or hydroureter. LEFT KIDNEY AND URETER: No suspicious masses. Assessment limited by lack of IV contrast. No signifi cant calcifications. No hydronephrosis or hydroureter. AORTA AND RETROPERITONEUM: No aneurysm. BOWEL AND PERITONEAL CAVITY: No obvious masses or inflammatory changes. No free fluid. APPENDIX: Dilatation of the appendix. There is gas in the appendix. Cihqui appendiceal inflammation. The extraluminal air has resolved. PELVIS, BLADDER, AND ABDOMINAL WALL: No abnormal pelvic masses. No abdominal wall hernias. Bladder un remarkable. BONES: No significant findings. OTHER: No other significant finding. IMPRESSION: Persistent dilatation of the appendix. There is air in the appendix and chiqui appendicea l inflammatory changes. The extraluminal air has resolved. Appendicitis with improvement. TECHNICAL DOCUMENTATION: JOB ID: [id number] Quality ID # [id number]: Final reports with documentation of one or more dose reduction techniques (e.g., Au tomated exposure control, adjustment of the mA and/or kV according to patient size, use of iterative reconstruction technique) 2010 [employer]- All Rights Reserved Reading location - IP/workstation name: [email or web address]
== END ==
LOC: RAD 07:12
PROVIDERS: ATTEND Surgery
DX: K35.32 Acute appendicitis with perforation, localized peritonitis, and gangrene, without abscess (principal)
CPT/HCPCS: 74176

== ENCOUNTER 2019-08-10 09:58 | Day surgery (SDC) | payer MEDICARE, OTHER ==
--- NOTE | 2019-08-03 09:18 | EKG REPORT ---
SEVERITY:- NORMAL ECG - SINUS RHYTHM : Confirmed by: Shadi Martínez 03-Aug-2019 09:17:07
[2019-08-03 09:39] LABS: ABSOLUTE EOSINOPHILS # (AUTO) 0.2 10^3/uL (0.0-0.6); ABSOLUTE LYMPHOCYTES (AUTO) 1.5 10^3/uL (0.5-4.7); ABSOLUTE MONOCYTES (AUTO) 0.5 10^3/uL (0.1-1.4); ABSOLUTE NEUT (AUTO) 2.2 10^3/uL (1.7-8.2); BASOPHILS % (AUTO) 1.1 % (0-2); EOSINOPHILS % (AUTO) 3.5 % (0-6); HEMATOCRIT 37.6 % (37.9-51.0); HEMOGLOBIN 12.6 g/dL (13.5-17.0); LYMPHOCYTES % (AUTO) 34.3 % (13-45); MEAN CORPUSCULAR HEMOGLOBIN 29.8 pg (27.0-33.4); MEAN CORPUSCULAR HGB CONC 33.5 g/dL (32.0-36.0); MEAN CORPUSCULAR VOLUME 89 fl (80-97); MONOCYTES % (AUTO) 10.6 % (3-13); PLATELET COUNT 235 10^3/uL (150-450); RED BLOOD COUNT 4.24 10^6/uL (4.35-5.55); RED CELL DISTRIBUTION WIDTH 14.8 % (11.5-14.0); SEGMENTED NEUTROPHILS % (AUTO) 50.5 % (42-78); TOTAL CELLS COUNTED % (AUTO) 100 %; WHITE BLOOD COUNT 4.3 10^3/uL (4.0-10.5)
[2019-08-03 09:57] LABS: ANION GAP 9 (5-19); BLOOD UREA NITROGEN 16 mg/dL (7-20); CALCIUM 9.7 mg/dL (8.4-10.2); CARBON DIOXIDE 23 mmol/L (22-30); CHLORIDE 107 mmol/L (98-107); GLUCOSE 186 mg/dL (75-110); POTASSIUM 4.2 mmol/L (3.6-5.0)
[~2019-08-10 09:58] MED LIST: CEFAZOLIN 1 GM/D5W RTU 1 GM/50 ML RTUPB IV ONE; CEFAZOLIN 1 GM/D5W RTU 1 GM/50 ML RTUPB IV PRN; FENTANYL CITRATE INJ/PF 100 MCG/2 ML AMPUL ONE; LACTATED RINGERS 1000 ML IV PRN; LIDOCAINE 0.5% INJ-PF (5 MG/ML) 50 ML SDV SUBCUT PRN; METRONIDAZOLE 500 MG/NS RTU 500 MG/100 ML RTUPB IV ONE; METRONIDAZOLE 500 MG/NS RTU 500 MG/100 ML RTUPB IV PRN; MIDAZOLAM 2 MG/2 ML INJ ONE; PROPOFOL INJ 200 MG/20 ML VIAL IV ONE
[2019-08-10] MEDS ORDERED: ROCURONIUM BROMIDE INJ 50 MG/5 ML VIAL IV ONE (10:00)
[2019-08-10] MEDS ORDERED: DEXAMETHASONE SOD PHOSPHATE INJ 4 MG/1 ML VIAL ONE (10:00)
[2019-08-10] MEDS ORDERED: ONDANSETRON HCL INJ/PF 4 MG/2 ML SDV ONE (10:00)
[2019-08-10] MEDS ORDERED: KETOROLAC TROMETHAMINE 60 MG/2 ML SDV ONE (10:00)
[2019-08-10] MEDS ORDERED: SUCCINYLCHOLINE CHLORIDE INJ 200 MG/10 ML VIAL ONE (10:00)
[2019-08-10] MEDS ORDERED: MIDAZOLAM 2 MG/2 ML INJ ONE (10:11)
[2019-08-10] MEDS ORDERED: FENTANYL CITRATE INJ/PF 100 MCG/2 ML AMPUL ONE (10:11)
[2019-08-10] MEDS ORDERED: PROPOFOL INJ 200 MG/20 ML VIAL IV ONE (10:12)
[2019-08-10] MEDS ORDERED: BUPIVACAINE HCL 0.5%-EPI 1:200000 INJ/PF 30 ML VIAL ONE (10:40)
[2019-08-10 11:34] LABS: PARTIAL THROMBOPLASTIN TIME 28.3 SEC (23.5-35.8); PROTHROMBIN TIME 13.2 SEC (11.4-15.4)
[2019-08-10] MEDS ORDERED: PROMETHAZINE HCL INJ 25 MG/1 ML VIAL IV PRN (12:13)
[2019-08-10] MEDS ORDERED: MORPHINE SULFATE 10 MG/ML INJ IV PRN (12:13)
[2019-08-10] MEDS ORDERED: MEPERIDINE HCL/PF INJ 25 MG/1 ML DISP.SYRIN IV PRN (12:13)
[2019-08-10] MEDS ORDERED: OXYCODONE-ACETAMINOPHEN 5-325 MG TABLET PO PRN ×3 (12:13→12:55)
[2019-08-10] MEDS ORDERED: DIPHENHYDRAMINE HCL 50 MG/ML VIAL IV PRN (12:13)
[2019-08-10] MEDS ORDERED: FENTANYL CITRATE INJ/PF 100 MCG/2 ML AMPUL IV PRN ×3 (12:13)
[2019-08-10] MEDS ORDERED: ONDANSETRON HCL INJ/PF 4 MG/2 ML SDV IV PRN (12:13)
[2019-08-10] MEDS ORDERED: BUPIVACAINE INJ/PF LIPOSOME/PF 266 MG/20 ML SDV ONE (12:26)
[2019-08-10] MEDS ORDERED: EPHEDRINE SULFATE INJ 50 MG/1 ML AMPULE ONE (12:50)
--- NOTE | 2019-08-10 12:50 | Discharge Summary ---
Discharge Summary (SDC) - Discharge Final Diagnosis: perforated appendicitis Date of Surgery: 08/10/19 Condition: Good Referrals: NELI PAYAN PA-C [Primary Care Provider] - Discharge Diet: As Tolerated Discharge Activity: Activity As Tolerated, No Lifting Over 10 Pounds Report the Following to Your Physician Immediately: Shortness of Breath, Fever over 101 Degrees, Unusual Bleeding, Redness - pt needs a f/u with me in 10-14 days.
--- NOTE | 2019-08-10 12:55 | Operative Report ---
Nonrecallable Operative Report DATE OF SURGERY: 08/10/19 PREOPERATIVE DIAGNOSIS: perforated appendicitis POSTOPERATIVE DIAGNOSIS: perforated appendicitis OPERATION: laparoscopic appendectomy SURGEON: DEVANG IRBY WELDING PROCESS SPECIALIST: COCO MATHIS ANESTHESIA: GA TISSUE REMOVED OR ALTERED: appenidix COMPLICATIONS: none ESTIMATED BLOOD LOSS: 25cc INTRAOPERATIVE FINDINGS: see note PROCEDURE: Patient was brought to the operating room awake alert stable condition placed in the operative table supine position induced under general anesthesia intubated. After appropriate timeout and site verification the abdomen was prepped and draped in usual sterile fashion. The varies needle was placed into the umbilicus and the abdomen was insufflated with 6 L of CO2 gas. Infraumbilical 5 mm incision was utilized and a 5 mm port placed in the abdominal cavity intra-abdominal visualization with a 5 mm scope revealed no evidence of Veress needle or trocar injury a suprapubic 5 mm port was placed under direct vision a left lower quadrant 10 mm port and a left-sided 5 mm port all under direct vision. The cecum was identified there was a phlegmon inferior to the cecum that was adherent to the right abdomen nominal wall which was taken down with blunt and sharp dissection. There is some omentum adherent to the phlegmon and this was divided with the LigaSure device. We then were able to identify the mesoappendix and the terminal ileum entering the cecum. Divided the mesoappendix with the LigaSure device. We then came across the base the appendix on the cecum with one firing the Endo AUGUSTINA stapler with a blue load. The appendix was placed in an Endobag and removed through the 10 mm port site in the left lower quadrant. The right lower quadrant was irrigated normal saline suctioned dry hemostasis was noted to be intact the ports were then removed. The fascial defect in the left lower quadrant Obed was closed with 0 Vicryl anesthetized with extra Prill and the 4 skin incisions were then closed with intracuticular 4-0 Biosyn Steri-Strips completed the procedure estimated blood loss was less than 25 cc sponge needle counts were correct x2 the patient was awakened in the operating room extubated transferred recovery in stable condition no complications. Coco dean was present for the entire operation for help with wound retraction wound closure.
[2019-08-10] MEDS ORDERED: OXYCODONE-ACETAMINOPHEN 5-325 MG TABLET ONE (13:49)
[2019-08-10] MEDS ORDERED: OXYCODONE-ACETAMINOPHEN 5-325 MG TABLET PO ONE (13:50)
[2019-08-10 15:16] VITALS: BP 138/81
== END 2019-08-10 14:35 | disposition home or self-care (01) ==
LOC: OROUT 09:58
PROVIDERS: ATTEND Surgery
DX: K35.32 Acute appendicitis with perforation, localized peritonitis, and gangrene, without abscess (principal); I10 Essential (primary) hypertension; E11.9 Type 2 diabetes mellitus without complications; I48.91 Unspecified atrial fibrillation; Z86.73 Personal history of transient ischemic attack (TIA), and cerebral infarction without residual deficits; Z79.899 Other long term (current) drug therapy; Z79.01 Long term (current) use of anticoagulants; Z87.891 Personal history of nicotine dependence; Z79.84 Long term (current) use of oral hypoglycemic drugs; Z79.02 Long term (current) use of antithrombotics/antiplatelets
CPT/HCPCS: 93005; 36415 ×2; 82962; 85025; 85610; 85730; 80048; 88342 ×2; 88341 ×2; 88304 ×2; 93010; 00840; 44970; J2250; J3490 ×4; J0690; J1100; J1885; J3010; A9270; J0330; J2405; J2704; C9290; 840

== ENCOUNTER → 2019-08-22 | Outpatient (CLI) | payer MEDICARE, OTHER ==
[2019-08-22 15:14] LABS: ABSOLUTE BASOPHILS # (AUTO) 0.1 10^3/uL (0.0-0.2); ABSOLUTE EOSINOPHILS # (AUTO) 0.1 10^3/uL (0.0-0.6); ABSOLUTE LYMPHOCYTES (AUTO) 1.7 10^3/uL (0.5-4.7); ABSOLUTE MONOCYTES (AUTO) 0.4 10^3/uL (0.1-1.4); ABSOLUTE NEUT (AUTO) 3.3 10^3/uL (1.7-8.2); BASOPHILS % (AUTO) 0.9 % (0-2); EOSINOPHILS % (AUTO) 2.3 % (0-6); HEMATOCRIT 41.6 % (37.9-51.0); LYMPHOCYTES % (AUTO) 30.5 % (13-45); MEAN CORPUSCULAR HEMOGLOBIN 29.9 pg (27.0-33.4); MEAN CORPUSCULAR HGB CONC 33.7 g/dL (32.0-36.0); MEAN CORPUSCULAR VOLUME 89 fl (80-97); MONOCYTES % (AUTO) 7.7 % (3-13); PLATELET COUNT 280 10^3/uL (150-450); RED BLOOD COUNT 4.69 10^6/uL (4.35-5.55); RED CELL DISTRIBUTION WIDTH 14.7 % (11.5-14.0); SEGMENTED NEUTROPHILS % (AUTO) 58.6 % (42-78); TOTAL CELLS COUNTED % (AUTO) 100 %; WHITE BLOOD COUNT 5.7 10^3/uL (4.0-10.5)
[2019-08-22 15:25] LABS: ALBUMIN 4.5 g/dL (3.5-5.0); ALKALINE PHOSPHATASE 104 U/L (38-126); ANION GAP 10 (5-19); ASPARTATE AMINO TRANSFERASE 20 U/L (17-59); BILIRUBIN,DIRECT 0.1 mg/dL (0.0-0.4); BILIRUBIN,TOTAL 0.6 mg/dL (0.2-1.3); BLOOD UREA NITROGEN 18 mg/dL (7-20); CALCIUM 10.4 mg/dL (8.4-10.2); CARBON DIOXIDE 22 mmol/L (22-30); CHLORIDE 107 mmol/L (98-107); GLUCOSE 170 mg/dL (75-110); POTASSIUM 4.3 mmol/L (3.6-5.0); TOTAL PROTEIN 7.3 g/dL (6.3-8.2)
[2019-08-22 15:57] LABS: CARCINOEMBRYONIC ANTIGEN 3.3 ng/mL (<3.0)
== END ==
LOC: OD 14:19
PROVIDERS: ATTEND Surgery
DX: C18.1 Malignant neoplasm of appendix (principal)
CPT/HCPCS: 36415; 80053; 82378; 85025

== ENCOUNTER → 2019-08-25 | Outpatient (CLI) | payer MEDICARE, OTHER ==
--- NOTE | 2019-08-25 14:09 | RADIOLOGY REPORT (SQ) ---
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 TECHNIQUE: CT scan of the chest performed using helical scanning technique with dynamic intravenous contrast injection. Images reviewed with lung, soft tissue and bone windows. Reconstructed coronal and sagittal MPR and MIP images reviewed. All images stored on PACS. All CT scanners at this facility use dose modulation, iterative reconstruction, and/or weight based d osing when appropriate to reduce radiation dose to as low as reasonably achievable (ALARA). [facility]: Dose Right [facility]: CareDose [facility]: Dose Right [facility]: Teradose 4D [facility]: [employer] Chitosan CONTRAST TYPE AND DOSE: contrast/concentration: Isovue 350.00 mg/ml; Total Contrast Delivered: 42.0 ml; Total Saline Delivered: 55.0 ml RENAL FUNCTION: BUN 18 creatinine 0.98. RADIATION DOSE: CT Rad equipment meets quality standard of care and radiation dose reduction techniq ues were employed. CTDIvol: 10.4 mGy. DLP: 430 mGy-cm. . LIMITATIONS: None. FINDINGS: LUNGS AND PLEURA: There are small subcentimeter pulmonary nodules as follows: 4 mm nodule in the posterior right upper lobe (axial series 4, image 32). 3.6 mm nodule in the posterior right left upper lobe (axial series 4, image 37). Irregular 5.8 mm nodule in the right middle lobe (axial series 4, image 78). On coronal reconstructi ons this is fairly flat. 4 mm nodule in the right lower lobe (axial series 4, image 76). 2.2 mm nodule in the right lower lobe (axial series 4, image 75). Possible tiny punctate calcificati on. Additionally there are few very tiny (1 mm) nodules in both lungs. No pleural effusion or pleural thickening. HILAR AND MEDIASTINAL STRUCTURES: No identified masses or abnormal nodes. HEART AND VASCULAR STRUCTURES: No aneurysm or dissection. No central pulmonary emboli. No pericardi al effusion. HARDWARE: None in the chest. UPPER ABDOMEN: 1 cm low-attenuation lesion in the posterior right lobe of the liver. Limited exam. THYROID AND OTHER SOFT TISSUES: No masses. No adenopathy. BONES: No significant finding. OTHER: No other significant finding. IMPRESSION: 1. SEVERAL SMALL SUBCENTIMETER PULMONARY NODULES DETAILED ABOVE. THESE ARE TOO SMALL TO CHARACTER IZE. THESE COULD HAVE BENIGN ETIOLOGY SUCH SMALL AREAS OF SCARRING AND NONCALCIFIED GRANULOMAS. CANNOT EXCLUDE EARLY METASTATIC INVOLVEMENT. THESE ARE TOO SMALL TO BE DETECTABLE ON PET IMAGING. R ECOMMEND FOLLOW-UP CT OF THE CHEST IN A FEW MONTHS TO EVALUATE FOR STABILITY OR PROGRESSION. 2. SMALL 1 CM LOW-ATTENUATION LESION IN THE POSTERIOR RIGHT LOBE OF THE LIVER. THIS WAS NOT PRESENT ON THE PRIOR ABDOMINAL CT IN JUNE 2019. THIS COULD BE A HEMANGIOMA ALTHOUGH AN EARLY METASTATIC LE TRUONG IS ALSO POSSIBLE. MAY CONSIDER FOLLOW-UP MRI OF THE LIVER. TECHNICAL DOCUMENTATION: JOB ID: [id number] Quality ID # [id number]: Final reports with documentation of one or more dose reduction techniques (e.g., Au tomated exposure control, adjustment of the mA and/or kV according to patient size, use of iterative reconstruction technique) 2010 [employer]- All Rights Reserved Reading location - IP/workstation name: [email or web address]
== END ==
LOC: RAD 13:00
PROVIDERS: ATTEND Surgery
DX: C18.1 Malignant neoplasm of appendix (principal); R91.8 Other nonspecific abnormal finding of lung field; K76.9 Liver disease, unspecified
CPT/HCPCS: 71260

== ENCOUNTER 2019-09-09 12:47 | Emergency (ER) | payer MEDICARE, OTHER ==
[2019-09-09] MEDS ORDERED: ASPIRIN 81 MG TABLET, CHEWABLE PO ONE (13:04)
--- NOTE | 2019-09-09 13:04 | ER Document Report ---
ED Medical Screen (RME) - General Chief Complaint: Chest Pain Stated Complaint: CHEST PAIN Time Seen by Provider: 09/09/19 13:01 Primary Care Provider: DEVANG BAH MD [Primary Care Provider] - Follow up as needed Mode of Arrival: Ambulatory Information source: Patient Notes: 73-year-old male presented to ED for complaint of numbness to the hands pain in the jaw tightness and dull in the chest and bad pain in the left back. These are all the symptoms that getting into get the heart catheterization in the first place. He states he talked to the doctor and they told him if it did not improve or if it got worse to come straight to the emergency room. He states it is worse today. He states he has lightheadedness and short of breath. He states when he takes a deep breath the pain is worse on the left side. He states he had a heart catheterization on the and he received 2 stents with a 90% blockage in 1 and 75% in the other one. He denies smoking drinking or drugs. He had a stroke in October of last year and is been on Plavix since then. After the heart catheterization the tetryl wringer operator added on baby aspirin a day. I have greeted and performed a rapid initial assessment of this patient. A comprehensive ED assessment and evaluation of the patient, analysis of test results and completion of medical decision making process will be conducted by an additional ED providers. TRAVEL OUTSIDE OF THE [place] IN LAST 30 DAYS: No - Related Data Allergies/Adverse Reactions: No Known Allergies Allergy (Verified 06/12/19 16:39) Past Medical History - Past Medical History Cardiac Medical History: Reports: Hx Hypercholesterolemia, Hx Hypertension Denies: Hx Coronary Artery Disease, Hx Heart Attack Pulmonary Medical History: Denies: Hx Asthma, Hx Bronchitis, Hx COPD, Hx Pneumonia Neurological Medical History: Reports: Hx Cerebrovascular Accident - 10/31/18. Denies: Hx Seizures Endocrine Medical History: Reports: Hx Diabetes Mellitus Type 2 Renal/ Medical History: Denies: Hx Peritoneal Dialysis Musculoskeltal Medical History: Denies Hx Arthritis Psychiatric Medical History: Denies: Hx Depression Past Surgical History: Reports: Hx Orthopedic Surgery - Right TKR - Immunizations Hx Diphtheria, Pertussis, Tetanus Vaccination: Yes Physical Exam - Vital signs Vitals: Temp Pulse Resp BP Pulse Ox 97.6 F 82 16 156/87 H 100 09/09/19 12:58 09/09/19 12:58 09/09/19 12:58 09/09/19 12:58 09/09/19 12:58 Course - Vital Signs Vital signs: Temp Pulse Resp BP Pulse Ox 97.6 F 82 16 156/87 H 100 09/09/19 12:58 09/09/19 12:58 09/09/19 12:58 09/09/19 12:58 09/09/19 12:58 Doctor's Discharge - Discharge Referrals: DEVANG BAH MD [Primary Care Provider] - Follow up as needed
[2019-09-09 13:29] LABS: ABSOLUTE EOSINOPHILS # (AUTO) 0.1 10^3/uL (0.0-0.6); ABSOLUTE MONOCYTES (AUTO) 0.4 10^3/uL (0.1-1.4); ABSOLUTE NEUT (AUTO) 1.8 10^3/uL (1.7-8.2); BASOPHILS % (AUTO) 1.2 % (0-2); EOSINOPHILS % (AUTO) 3.1 % (0-6); HEMATOCRIT 42.3 % (37.9-51.0); HEMOGLOBIN 14.3 g/dL (13.5-17.0); LYMPHOCYTES % (AUTO) 29.5 % (13-45); MEAN CORPUSCULAR HGB CONC 33.8 g/dL (32.0-36.0); MEAN CORPUSCULAR VOLUME 89 fl (80-97); MONOCYTES % (AUTO) 12.8 % (3-13); PLATELET COUNT 226 10^3/uL (150-450); RED BLOOD COUNT 4.76 10^6/uL (4.35-5.55); RED CELL DISTRIBUTION WIDTH 14.4 % (11.5-14.0); SEGMENTED NEUTROPHILS % (AUTO) 53.4 % (42-78); TOTAL CELLS COUNTED % (AUTO) 100 %; WHITE BLOOD COUNT 3.4 10^3/uL (4.0-10.5)
[2019-09-09 13:38] LABS: INTERNATIONAL RATION (INR) 0.89
[2019-09-09 13:46] LABS: ALBUMIN 4.4 g/dL (3.5-5.0); ALKALINE PHOSPHATASE 104 U/L (38-126); ANION GAP 12 (5-19); ASPARTATE AMINO TRANSFERASE 18 U/L (17-59); BILIRUBIN,DIRECT 0.2 mg/dL (0.0-0.4); BILIRUBIN,TOTAL 0.6 mg/dL (0.2-1.3); BLOOD UREA NITROGEN 9 mg/dL (7-20); CALCIUM 9.9 mg/dL (8.4-10.2); CARBON DIOXIDE 26 mmol/L (22-30); CHLORIDE 104 mmol/L (98-107); GLUCOSE 200 mg/dL (75-110); TOTAL PROTEIN 7.4 g/dL (6.3-8.2)
[2019-09-09 13:49] LABS: CREATINE KINASE < 20 U/L (55-170)
--- NOTE | 2019-09-09 13:55 | ER Document Report ---
ED Cardiac - General Chief Complaint: Chest Pain Stated Complaint: CHEST PAIN Time Seen by Provider: 09/09/19 13:01 Primary Care Provider: DEVANG BAH MD [ACTIVE STAFF] - Follow up as needed Mode of Arrival: Ambulatory Information source: Patient TRAVEL OUTSIDE OF THE [place] IN LAST 30 DAYS: No - HPI Patient complains to provider of: Chest tightness Chest pain location: Back Quality of pain: Intermittent, Mild, Cramping Chest pain radiation location: Left arm Severity at worst: Moderate Pain level currently: 1 Chest pain precipitating factors: movement of left shoulder Positive cardiac history: Yes Notes: Patient has had cardiac catheterization within the last 2 weeks performed at [facility] where he was found to have 2 blockages requiring stent placement. - Related Data Allergies/Adverse Reactions: No Known Allergies Allergy (Verified 09/09/19 13:04) Home Medications: amlodipine. atorvastatin. clopidogrel. fexofenadine. januvia. jardiance. losartan. metformin. pantoprazole. tamulosin Past Medical History - General Information source: Patient - Social History Smoking Status: Never Smoker Chew tobacco use (# tins/day): No Frequency of alcohol use: None Drug Abuse: None Family History: Reviewed & Not Pertinent Patient has suicidal ideation: No Patient has homicidal ideation: No - Past Medical History Cardiac Medical History: Reports: Hx Coronary Artery Disease, Hx Hypercholesterolemia, Hx Hypertension, Other Denies: Hx DVT, Hx Pulmonary Embolism Other: Past history of stroke Pulmonary Medical History: Denies: Hx Asthma, Hx Bronchitis, Hx COPD, Hx Pneumonia Neurological Medical History: Reports: Hx Cerebrovascular Accident - 10/31/18. Denies: Hx Seizures Endocrine Medical History: Reports: Hx Diabetes Mellitus Type 2 Renal/ Medical History: Denies: Hx Peritoneal Dialysis Malignancy Medical History: Reports Hx Colorectal Cancer Musculoskeletal Medical History: Denies Hx Arthritis Psychiatric Medical History: Denies: Hx Depression Past Surgical History: Reports: Hx Appendectomy, Hx Orthopedic Surgery - Right TKR, Hx Vascular Surgery - stents 08/31/19 - Immunizations Hx Diphtheria, Pertussis, Tetanus Vaccination: Yes Review of Systems - Review of Systems Notes: Constitutional: Negative for fever. HENT: Negative for sore throat. Eyes: Negative for visual changes. Cardiovascular: As per HPI Respiratory: Negative for shortness of breath. Gastrointestinal: Negative for abdominal pain, vomiting or diarrhea. Genitourinary: Negative for dysuria. Musculoskeletal: As per HPI Skin: Negative for rash. Neurological: Negative for headaches, weakness or numbness. 10 point ROS negative except as marked above and in HPI. Physical Exam - Vital signs Vitals: Temp Pulse Resp BP Pulse Ox 97.6 F 82 16 156/87 H 100 09/09/19 12:58 09/09/19 12:58 09/09/19 12:58 09/09/19 12:58 09/09/19 12:58 Notes: GENERAL: Well-developed well-nourished appearing in no acute distress. SKIN: Good turgor no rashes. HEAD: Normocephalic atraumatic. EYES: PERRLA. Conjunctivae and sclerae clear. EARS: CANALS AND TMS CLEAR. NOSE: CLEAR. MOUTH: Moist mucosa. Good dentition. No stridor or edema. No drooling. NECK: Supple. No masses or thyromegaly. No adenopathy. Carotids 2+ without bruits. No JVD. BACK: Mild tenderness to palpation over left scapular area CHEST: Respirations unlabored. Breath sounds clear and symmetrical. HEART: Regular rhythm. No murmur gallop or rub. ABDOMEN: Soft nontender without masses, organomegaly or rebound. Bowel sounds normally active. No bruits. GENITALIA: Deferred. EXTREMITIES: No edema. No calf tenderness. Cap refill less than 1.5 seconds. Dorsalis pedis and posterior tibial pulses 3+ and symmetrical. NEUROLOGICAL: GCS 15. Alert and oriented x3. Normal gait. Fluent speech. Cranial nerves II through XII intact. Sensorimotor and cerebellar normal. Normal tone. PSYCHIATRIC: Normal affect Course - Re-evaluation Re-evalutation: 09/09/19 15:18 Patient is asymptomatic at this time. His EKG was normal here and unchanged from baseline tracing. His troponin is normal. His d-dimer is normal. Chemistry profile is unremarkable and CBC is normal. I attempted to contact his jig borer, Dr. Florian, at [facility] in [facility]. I received a call back from their on- call nurse practitioner Krystal West. I reviewed findings with her and she reviewed the catheterization and office notes for this patient. She agrees that this is likely to be musculoskeletal discomfort based on his negative work-up here today. She will arrange for Dr. Florian or Dr. Hutson in their [facility] office to contact patient for follow-up within the next 48 hours. Patient may return here if he has new or worsening symptoms. I am going to treat him symptomatically with Flexeril and Tylenol at this time. - Vital Signs Vital signs: Temp Pulse Resp BP Pulse Ox 97.6 F 82 12 132/90 H 99 09/09/19 12:58 09/09/19 12:58 09/09/19 13:34 09/09/19 13:34 09/09/19 13:34 - Laboratory Result Diagrams: 09/09/19 13:20 09/09/19 13:20 Laboratory results interpreted by me: 09/09/19 09/09/19 09/09/19 13:20 13:20 13:20 WBC 3.4 L RDW 14.4 H APTT 21.0 L Glucose 200 H Creatine Kinase < 20 L TSH 09/09/19 13:20 WBC RDW APTT Glucose Creatine Kinase TSH 6.59 H 09/09/19 14:14 Troponin Normal - EKG Interpretation by Me EKG shows normal: Sinus rhythm Rate: Normal Rhythm: NSR When compared to previous EKG there are: No significant change Discharge - Discharge Clinical Impression: Chest pain Qualifiers: Chest pain type: unspecified Qualified Code(s): R07.9 - Chest pain, unspecified Condition: Stable Disposition: HOME, SELF-CARE Instructions: Chest Wall Pain ([facility]), Nitrates ([facility]) Additional Instructions: Return here as needed for worsening or prolonged pain particularly if associated with shortness of breath or heavy sweating. Use nitroglycerin as previously directed if you have worsening pain or prolonged pain. Continue aspirin and Plavix as previously prescribed. Follow-up with your jig borer within the next 48 hours as directed. Prescriptions: Tizanidine HCl 2 mg PO TID #30 tablet Referrals: DEVANG BAH MD [ACTIVE STAFF] - Follow up as needed
[2019-09-09 13:59] LABS: CREATINE KINASE MB 0.95 ng/mL (<4.55); NT PRO BNP 42 pg/mL (<125)
[2019-09-09 14:01] LABS: TROPONIN I < 0.012 ng/mL
--- NOTE | 2019-09-09 14:12 | RADIOLOGY REPORT (SQ) ---
EXAM DESCRIPTION: CHEST 2 VIEWS COMPLETED DATE/TIME: 09/09/2019 2:00 pm REASON FOR STUDY: chest pain COMPARISON: 2018 TECHNIQUE: Frontal and lateral radiographic views of the chest acquired. NUMBER OF VIEWS: Two view. LIMITATIONS: None. FINDINGS: LUNGS AND PLEURA: No opacities, masses or pneumothorax. No pleural effusion. MEDIASTINUM AND HILAR STRUCTURES: No masses or contour abnormalities. HEART AND VASCULAR STRUCTURES: Heart normal size. No evidence for failure. BONES: No acute findings. HARDWARE: None in the chest. OTHER: No other significant finding. IMPRESSION: NO SIGNIFICANT RADIOGRAPHIC FINDING IN THE CHEST. TECHNICAL DOCUMENTATION: JOB ID: [id number] [employer]- All Rights Reserved Reading location - IP/workstation name: [email or web address]
--- NOTE | 2019-09-09 14:44 | EKG REPORT ---
SEVERITY:- NORMAL ECG - SINUS RHYTHM : Confirmed by: Jeovanny Mcarthur MD 09-Sep-2019 14:44:24
[2019-09-09 15:46] VITALS: BP 125/81
== END 2019-09-09 15:54 | disposition home or self-care (01) ==
LOC: ER 12:47
DX: R07.9 Chest pain, unspecified (principal); E78.00 Pure hypercholesterolemia, unspecified; E11.9 Type 2 diabetes mellitus without complications; I25.10 Atherosclerotic heart disease of native coronary artery without angina pectoris; I10 Essential (primary) hypertension; Z86.73 Personal history of transient ischemic attack (TIA), and cerebral infarction without residual deficits; Z96.651 Presence of right artificial knee joint
CPT/HCPCS: 93005; 36415; 82553; 82550; 83735; 84443; 85025; 85610; 85730; 80053; 84484; 85379; 83880; 71046; 93010; A9270; 99285

== ENCOUNTER → 2019-09-24 | Outpatient (CLI) | payer MEDICARE, OTHER ==
--- NOTE | 2019-09-25 10:00 | RADIOLOGY REPORT (SQ) ---
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 TECHNIQUE: Blood glucose level was verified. Above dose of FDG was injected intravenously. 2-D seg mented attenuation correction images were obtained from the base of the skull to the midthighs. Nonc ontrast CT images were obtained for attenuation correction and fusion with emission images. CT image s were performed without oral or intravenous contrast and are not sensitive for parenchymal lesions. A series of overlapping emission PET images were obtained. Images reviewed and manipulated at [facility] work station by the radiologist. Images stored on PACS. LIMITATIONS: None. FINDINGS: HEAD AND NECK: No areas of abnormal metabolic activity in the soft tissues of the head and neck. CHEST: Tiny subpleural noncalcified nodules are present along the periphery of both lungs on CT chest 08/25/2019. These are too small to characterize with PET-CT but had a probably benign postinflammat ory appearance on the CT exam from 08/25/2019. These are difficult to discern on today's PET-CT due to technique. ABDOMEN AND PELVIS: The tiny hypodensity in the posterior right lobe liver seen on 08/25/[address] image 65/70 is not identified on the current exam. No right lower quadrant metabolic activity is present to suggest residual or recurrent tumor. Few st able small subcentimeter right lower quadrant mesenteric lymph nodes are present, non metabolic as fo llows: 7 mm mesenteric lymph node axial image 177/303 9 mm mesenteric lymph node axial image 180/303 12 mm mesenteric lymph node axial image 183/303 6 mm mesenteric lymph node axial image 188/303 There is a non metabolic 1.6 x 0.9 cm right external iliac lymph node on axial image 224/303, unchang ed from 06/29/2019 CT abdomen pelvis. PROXIMAL LOWER EXTREMITIES: No areas of abnormal metabolic activity in the soft tissues of the lower extremities. BONES: No abnormal metabolic activity in the visualized skeleton. ADDITIONAL CT FINDINGS: Post partial right colectomy/appendectomy. Gynecomastia. Coronary stents. Anterior left chest loop recorder. OTHER: No other significant findings. 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
== END ==
LOC: RAD 15:19
PROVIDERS: ATTEND Internal Medicine
DX: C18.2 Malignant neoplasm of ascending colon (principal)
CPT/HCPCS: 78815; A9552

== ENCOUNTER 2019-10-26 08:01 | Inpatient (IN) | payer MEDICARE, OTHER ==
[2019-10-19 10:28] LABS: ABSOLUTE EOSINOPHILS # (AUTO) 0.1 10^3/uL (0.0-0.6); ABSOLUTE LYMPHOCYTES (AUTO) 1.4 10^3/uL (0.5-4.7); ABSOLUTE MONOCYTES (AUTO) 0.6 10^3/uL (0.1-1.4); ABSOLUTE NEUT (AUTO) 1.7 10^3/uL (1.7-8.2); BASOPHILS % (AUTO) 0.5 % (0-2); EOSINOPHILS % (AUTO) 2.9 % (0-6); HEMATOCRIT 36.5 % (37.9-51.0); HEMOGLOBIN 12.3 g/dL (13.5-17.0); LYMPHOCYTES % (AUTO) 36.9 % (13-45); MEAN CORPUSCULAR HEMOGLOBIN 29.5 pg (27.0-33.4); MEAN CORPUSCULAR HGB CONC 33.7 g/dL (32.0-36.0); MEAN CORPUSCULAR VOLUME 88 fl (80-97); MONOCYTES % (AUTO) 16.3 % (3-13); PLATELET COUNT 222 10^3/uL (150-450); RED BLOOD COUNT 4.17 10^6/uL (4.35-5.55); RED CELL DISTRIBUTION WIDTH 13.6 % (11.5-14.0); SEGMENTED NEUTROPHILS % (AUTO) 43.4 % (42-78); TOTAL CELLS COUNTED % (AUTO) 100 %; WHITE BLOOD COUNT 3.9 10^3/uL (4.0-10.5)
[2019-10-19 10:55] LABS: ANION GAP 8 (5-19); BLOOD UREA NITROGEN 10 mg/dL (7-20); CALCIUM 9.5 mg/dL (8.4-10.2); CARBON DIOXIDE 26 mmol/L (22-30); CHLORIDE 110 mmol/L (98-107); GLUCOSE 156 mg/dL (75-110); POTASSIUM 3.8 mmol/L (3.6-5.0)
[~2019-10-26 08:01] MED LIST changes: -CEFAZOLIN 1 GM/D5W RTU 1 GM/50 ML RTUPB IV ONE; -CEFAZOLIN 1 GM/D5W RTU 1 GM/50 ML RTUPB IV PRN; +CEFAZOLIN SODIUM 1 GM in DEXTROSE 5%-WATER 50 ML IV PRN; -FENTANYL CITRATE INJ/PF 100 MCG/2 ML AMPUL ONE; -LIDOCAINE 0.5% INJ-PF (5 MG/ML) 50 ML SDV SUBCUT PRN; -METRONIDAZOLE 500 MG/NS RTU 500 MG/100 ML RTUPB IV ONE; -MIDAZOLAM 2 MG/2 ML INJ ONE; -PROPOFOL INJ 200 MG/20 ML VIAL IV ONE
[2019-10-26] MEDS ORDERED: BUPIVACAINE HCL 0.25 % INJ/PF (2.5 MG/1 ML) 30 ML VIAL ONE (08:30)
[2019-10-26 08:54] LABS: INTERNATIONAL RATION (INR) 1.01; PROTHROMBIN TIME 13.3 SEC (11.4-15.4)
[2019-10-26 08:55] LABS: PARTIAL THROMBOPLASTIN TIME 30.9 SEC (23.5-35.8)
[2019-10-26] MEDS ORDERED: METRONIDAZOLE 500 MG/NS RTU 500 MG/100 ML RTUPB IV ONE (09:07)
[2019-10-26] MEDS ORDERED: FENTANYL CITRATE INJ/PF 250 MCG/5 ML AMPULE ONE (09:24)
[2019-10-26] MEDS ORDERED: MIDAZOLAM 2 MG/2 ML INJ ONE (09:25)
[2019-10-26] MEDS ORDERED: HYDROMORPHONE HCL INJ/PF 2 MG/ML AMPULE ONE (09:25)
[2019-10-26] MEDS ORDERED: PROPOFOL INJ 200 MG/20 ML VIAL IV ONE (09:25)
[2019-10-26] MEDS ORDERED: BUPIVACAINE INJ/PF LIPOSOME/PF 266 MG/20 ML SDV ONE (10:29)
[2019-10-26] MEDS ORDERED: FENTANYL CITRATE INJ/PF 100 MCG/2 ML AMPUL IV PRN ×3 (10:58)
[2019-10-26] MEDS ORDERED: MEPERIDINE HCL/PF INJ 25 MG/1 ML DISP.SYRIN IV PRN (10:58)
[2019-10-26] MEDS ORDERED: DIPHENHYDRAMINE HCL 50 MG/ML VIAL IV PRN (10:58)
[2019-10-26] MEDS ORDERED: LABETALOL HCL INJ 20 MG/4 ML DISP.SYRIN IV PRN (10:58)
[2019-10-26] MEDS ORDERED: PROMETHAZINE HCL INJ 25 MG/1 ML VIAL IV PRN (10:58)
[2019-10-26] MEDS ORDERED: POTASSI CL 20 MEQ/D5-1/2NS 1L 1,000 ML IV PRN (11:53)
[2019-10-26] MEDS ORDERED: CEFAZOLIN 1 GM/D5W RTU 50 ML IV SCH (12:00)
--- NOTE | 2019-10-26 12:07 | Operative Report ---
Nonrecallable Operative Report DATE OF SURGERY: 10/26/19 PREOPERATIVE DIAGNOSIS: appendiceal cancer POSTOPERATIVE DIAGNOSIS: appendiceal cancer, meckels diverticulum OPERATION: laparoscopic right hemicolectomy and meckels diverticulectomy SURGEON: DEVANG BAH ANESTHESIA: GA TISSUE REMOVED OR ALTERED: Right colon and Meckel's diverticulum. COMPLICATIONS: None. None ESTIMATED BLOOD LOSS: 75 cc INTRAOPERATIVE FINDINGS: See dictation PROCEDURE: Patient brought to the operating awake alert stable condition placed in the operative table supine position just under general stage intubated the abdomen was prepped and draped in usual sterile fashion for the procedure. After appropriate timeout and site verification the procedure commenced. The varies needle was placed into the umbilicus and the abdomen was insufflated with 6 L of CO2 gas. An infraumbilical 10 mm incision was made with a 15 blade and a 10 mm port placed in the abdominal cavity intra-abdominal visualization revealed no evidence of Veress needle or trocar injury. 2 left lateral 5 mm ports were placed under direct vision. 1 epigastric port was placed under direct vision 5 mm. The cecum was identified it was retracted medially we took down the peritoneal reflection along the white line of [place] with the LigaSure device all the way around the hepatic flexure to the mid transverse colon. We then mobilized the transverse colon away from the omental attachments with the LigaSure device retracting the omentum cephalad. Once was was done we completely mobilized the transverse mesocolon to allow the colon to easily come up to the anterior abdominal wall. The pneumoperitoneum was then reduced and a transverse incision was made in the right lower quadrant approximately 5 cm long the Mohamud wound protector was placed into the abdominal cavity and we were able to deliver the specimen along with the terminal ileum and the mid transverse colon through that small wound. We divided the terminal ileum about 10 cm proximal to the cecum with one firing the Endo AUGUSTINA stapler with a blue load we then took down the mesentery close to the aortic takeoff vessels with the LigaSure device from the divided ileum all the way to the mid transverse colon just to the right of the middle colic artery. We then divided the mid transverse colon with one firing the Endo AUGUSTINA stapler with a blue load. We finished the division of the mesentery with the LigaSure device and remove the specimen. We then eviscerated some more small bowel about 5 to 10 cm where we noted the Meckel's diverticulum about 2 feet from the ileocecal valve. We divided that and remove it with one firing the Endo AUGUSTINA stapler with a blue load. We then performed an ileo-transverse anastomosis in 2 layers the outer layer being interrupted 3-0 silk the inner layer being a running 3-0 Vicryl suture. The anastomosis was patent and wide and hemostatic. We closed the mesocolon with interrupted placed 2-0 Vicryl suture. We returned the anastomosis back to the abdominal cavity we closed the posterior sheath with a running 0 PDS suture the anterior sheath with interrupted 0 Vicryl sutures. We placed 3-0 Vicryl in the subcutaneous tissue and closed the skin with intracuticular 4-0 Biosyn. We reinsufflated the abdominal cavity and investigated the anastomosis as well as any bleeding there was none we reduce the pneumoperitoneum we closed the umbilical port site defect with 0 Vicryl and then closed all skin incisions with intracuticular 4-0 Biosyn Steri-Strips completed the procedure estimated blood loss was 75 cc sponge needle counts were correct x2 the patient was awakened in the operative extubated transferred recovery in stable condition no complications
[2019-10-26] MEDS ORDERED: ACETAMINOPHEN 1,000 MG/100 ML RTUPB IV ONE (12:15)
[2019-10-26] MEDS ORDERED: ONDANSETRON HCL INJ/PF 4 MG/2 ML SDV ONE ×2 (12:34→14:57)
[2019-10-26] MEDS: HYDROMORPHONE HCL INJ/PF 2 MG/ML AMPULE ONE ×2 (12:35→13:50)
[2019-10-26] MEDS ORDERED: HYDRALAZINE HCL INJ/PF 20 MG/1 ML SDV ONE (14:10)
[2019-10-26] MEDS ORDERED: SUCCINYLCHOLINE CHLORIDE INJ 200 MG/10 ML VIAL ONE (14:57)
[2019-10-26] MEDS ORDERED: LIDOCAINE 2% INJ-PF (20 MG/ML) 2 ML AMPUL ONE (14:57)
[2019-10-26] MEDS ORDERED: GLYCOPYRROLATE 1 MG/5 ML VIAL ONE (14:57)
[2019-10-26] MEDS ORDERED: VECURONIUM BROMIDE INJ 10 MG VIAL IV ONE (14:57)
[2019-10-26] MEDS ORDERED: DEXAMETHASONE SOD PHOSPHATE INJ 4 MG/1 ML VIAL ONE (14:57)
[2019-10-26] MEDS ORDERED: KETOROLAC TROMETHAMINE 60 MG/2 ML SDV ONE (14:57)
[2019-10-26] MEDS ORDERED: NEOSTIGMINE METHYLSULFATE 10 MG/10 ML VIAL ONE (14:57)
[2019-10-26] MEDS: MORPHINE SULFATE 10 MG/ML INJ IV PRN ×2 (19:01→23:58)
[2019-10-26] MEDS: HEPARIN SOD (PORCINE) 5,000 UNIT/ML 1 ML VIAL SUBCUT SCH ×2 (19:07→21:11)
[2019-10-26] MEDS: METRONIDAZOLE 500 MG/NS RTU 500 MG/100 ML RTUPB IV SCH (19:08)
[2019-10-26] MEDS: CEFAZOLIN SODIUM 1 GM in DEXTROSE 5%-WATER 50 ML IV SCH (20:06)
--- NOTE | 2019-10-26 20:22 | PDOC CONSULTATION ---
Consultation Consult Date: 10/26/19 Provider Consulted: STEPHANI JACKSON Consult reason:: Coronary artery disease, status post abdominal surgery History of Present Illness Admission Date/PCP: 10/26/19 08:01 KARMA JENNINGS MD Patient complains of: Status post surgery. No complaints at the moment. History of Present Illness: HALEY KENNEDY is a 73 year old male With the following active problems 1. Systemic hypertension 2. Diabetes mellitus 3. Dyslipidemia 4. Coronary disease 5. Carcinoma appendix 6. Injectable loop recorder in situ 73-year-old male with complicated history including ruptured appendix. At surgery there was malignancy noted in the appendix and subsequently a complete right hemicolectomy was performed today using a laparoscopic procedure. A Meckel's diverticulum was also removed. Of note patient is reported to have coronary artery disease which was diagnosed in August 2019. At that time patient received stents to to blood vessels. Patient does not have a stent card. This procedure was performed at [facility]. Since then the patient has been maintained on dual antiplatelet therapy consisting of aspirin and clopidogrel. The clopidogrel has been interrupted for the surgery but the aspirin was continued. Patient is resting post surgery without any symptoms. No complaints of chest pain. Patient also reports having had an injectable loop recorder placed in the last year. The reason for this is not clear to me. Past Medical History Cardiac Medical History: Reports: Coronary Artery Disease, Hyperlipidema, Hypertension Denies: Atrial Fibrillation, Congestive Heart Failure, DVT, Myocardial Infarction, Peripheral Vascular Disease, Pulmonary Embolism, Heart Murmur Pulmonary Medical History: Denies: Asthma, Bronchitis, Chronic Obstructive Pulmonary Disease (COPD), Pneumonia Neurological Medical History: Denies: Seizures Endocrine Medical History: Reports: Diabetes Mellitus Type 2 Denies: Hyperthyroidism, Hypothyroidism Malignancy Medical History: Reports: Colorectal Cancer GI Medical History: Denies: Crohn's Disease, Gastroesophageal Reflux Disease, Hiatal Hernia Musculoskeltal Medical History: Denies: Arthritis Psychiatric Medical History: Denies: Dementia, Depression Hematology: Denies: Anemia Past Surgical History Past Surgical History: Reports: Appendectomy, Orthopedic Surgery - Right TKR, Vascular Surgery - stents 08/31/19 Denies: Cholecystectomy, Colostomy, Coronary Artery Bypass Graft, Gastric Bypass Surgery, Herniorrhaphy, Pacemaker, Tonsillectomy Social History Smoking Status: Never Smoker Frequency of Alcohol Use: None Hx Recreational Drug Use: No Hx Prescription Drug Abuse: No - Advance Directive Resuscitation Status: Full Code Family History Family History: Reviewed & Not Pertinent Parental Family History Reviewed: No Children Family History Reviewed: NA Sibling(s) Family History Reviewed.: NA Medication/Allergy Home Medications: Fexofenadine HCl 180 mg PO DAILY 10/30/18 Losartan Potassium 100 mg PO DAILY 10/30/18 Atorvastatin Calcium [Lipitor 80 mg Tablet] 80 mg PO QHS 06/12/19 Clopidogrel Bisulfate [Plavix 75 mg Tablet] 75 mg PO DAILY 06/12/19 Metformin HCl [Metformin HCl ER] 1,000 mg PO DAILY 06/12/19 Pantoprazole Sodium [Protonix [address] Tablet] 20 mg PO QAM 06/12/19 Sitagliptin Phosphate [Januvia 50 mg Tablet] 50 mg PO DAILY 06/12/19 Amlodipine Besylate [Norvasc 5 mg Tablet] 5 mg PO DAILY 08/03/19 Aspirin [Aspirin 81 mg Chewable Tablet] 1 tab PO DAILY 10/19/19 Sildenafil Citrate [Viagra] 100 mg PO ASDIR PRN 10/19/19 Empagliflozin [Jardiance] 25 mg PO DAILY 10/26/19 Exenatide Microspheres [Bydureon Bcise] 2 mg SUBCUT .QWEEKLY 10/26/19 Allergies/Adverse Reactions: No Known Allergies Allergy (Verified 10/19/19 08:57) Review of Systems Constitutional: PRESENT: as per HPI, anorexia Nose, Mouth, and Throat: PRESENT: as per HPI Cardiovascular: PRESENT: as per HPI Respiratory: PRESENT: as per HPI Physical Exam Vital Signs: Temp Pulse Resp BP Pulse Ox 98.7 F 88 16 129/73 H 96 10/26/19 17:35 10/26/19 17:35 10/26/19 17:35 10/26/19 17:35 10/26/19 17:35 Intake & Output 10/25/19 10/26/19 10/27/19 06:59 06:59 06:59 Intake Total 2900 Output Total 1300 Balance 1600 Weight 87.7 kg General appearance: PRESENT: no acute distress, cooperative Head exam: PRESENT: atraumatic, normocephalic Eye exam: PRESENT: conjunctiva pink, EOMI Mouth exam: PRESENT: moist Respiratory exam: PRESENT: clear to auscultation jorge, decreased breath sounds, unlabored Cardiovascular exam: PRESENT: RRR, +S1, +S2 Pulses: PRESENT: normal radial pulses GI/Abdominal exam: PRESENT: soft, other - Postsurgical. Bandages noted. Rectal exam: PRESENT: deferred Musculoskeletal exam: PRESENT: ambulatory, normal inspection Neurological exam: PRESENT: alert, awake, oriented to person, oriented to place, oriented to time, oriented to situation Psychiatric exam: PRESENT: appropriate affect Skin exam: PRESENT: dry, intact, normal color Results Laboratory Results: 10/19/19 09:48 10/19/19 09:48 10/26/19 08:54 Blood Type B POSITIVE Antibody Screen NEGATIVE EKG Comments: Twelve-lead EKG 09/09/2019 Sinus rhythm, normal AV conduction, QTC is 422 ms. Assessment & Plan - Diagnosis (1) CAD (coronary artery disease) Qualifiers: Coronary Disease-Associated Artery/Lesion type: ramona artery [place] vs. transplanted heart: ramona heart Associated angina: without angina Qualified Code(s): I25.10 - Atherosclerotic heart disease of ramona coronary artery without angina pectoris Is this a current diagnosis for this admission?: Yes Plan: Coronary artery disease with recent PCI. The setting of this is unclear. There appears to that it was discovered as part of re-stratification prior to surgery. Patient has been on dual antiplatelet therapy consisting of aspirin and clopidogrel. Aspirin has been continued. Would recommend the clopidogrel be resumed as soon as feasible. Continue other guideline directed medical therapy for coronary disease as feasible including statin and beta-blockers. (2) Hypertension Qualifiers: Hypertension type: essential hypertension Qualified Code(s): I10 - Essential (primary) hypertension Is this a current diagnosis for this admission?: Yes Plan: Watch blood pressure. Resume antihypertensives according to home regimen. - Notes Notes: Patient is doing well post surgery. Presently no chest pain is noted. Resume clopidogrel as soon as feasible Continue guideline directed medical therapy for coronary disease.
[2019-10-26] MEDS: FAMOTIDINE INJ/PF 20 MG/2 ML SDV IV SCH ×2 (21:11→21:12)
[2019-10-27] MEDS: CEFAZOLIN SODIUM 1 GM in DEXTROSE 5%-WATER 50 ML IV SCH ×3 (01:00→19:49)
[2019-10-27] MEDS: METRONIDAZOLE 500 MG/NS RTU 500 MG/100 ML RTUPB IV SCH ×3 (01:42→19:48)
[2019-10-27] MEDS: HEPARIN SOD (PORCINE) 5,000 UNIT/ML 1 ML VIAL SUBCUT SCH ×3 (05:15→21:13)
[2019-10-27] MEDS: MORPHINE SULFATE 10 MG/ML INJ IV PRN (05:15)
[2019-10-27 05:28] LABS: ABSOLUTE LYMPHOCYTES (AUTO) 0.9 10^3/uL (0.5-4.7); ABSOLUTE MONOCYTES (AUTO) 0.6 10^3/uL (0.1-1.4); ABSOLUTE NEUT (AUTO) 4.5 10^3/uL (1.7-8.2); BASOPHILS % (AUTO) 0.2 % (0-2); HEMATOCRIT 33.3 % (37.9-51.0); HEMOGLOBIN 11.4 g/dL (13.5-17.0); LYMPHOCYTES % (AUTO) 14.7 % (13-45); MEAN CORPUSCULAR HEMOGLOBIN 29.9 pg (27.0-33.4); MEAN CORPUSCULAR HGB CONC 34.2 g/dL (32.0-36.0); MEAN CORPUSCULAR VOLUME 87 fl (80-97); MONOCYTES % (AUTO) 10.6 % (3-13); PLATELET COUNT 244 10^3/uL (150-450); RED BLOOD COUNT 3.81 10^6/uL (4.35-5.55); RED CELL DISTRIBUTION WIDTH 13.9 % (11.5-14.0); SEGMENTED NEUTROPHILS % (AUTO) 74.5 % (42-78); TOTAL CELLS COUNTED % (AUTO) 100 %
[2019-10-27 05:51] LABS: ANION GAP 7 (5-19); BLOOD UREA NITROGEN 14 mg/dL (7-20); CALCIUM 8.8 mg/dL (8.4-10.2); CARBON DIOXIDE 24 mmol/L (22-30); CHLORIDE 106 mmol/L (98-107); GLUCOSE 167 mg/dL (75-110); POTASSIUM 4.5 mmol/L (3.6-5.0)
--- NOTE | 2019-10-27 09:01 | PDOC PROGRESS REPORT ---
Subjective Progress Note for:: 10/27/19 Subjective:: c/o incisional pain Reason For Visit: C18.1 MALIGNANT NEOPLASM OF APPENDIX Physical Exam Vital Signs: Temp Pulse Resp BP Pulse Ox 97.6 F 86 18 125/65 96 10/27/19 08:35 10/27/19 08:35 10/27/19 08:35 10/27/19 08:35 10/27/19 08:35 Intake & Output 10/26/19 10/27/19 10/28/19 06:59 06:59 06:59 Intake Total 3200 Output Total 2400 Balance 800 Weight 91.9 kg General appearance: PRESENT: mild distress Head exam: PRESENT: normocephalic Eye exam: PRESENT: EOMI Ear exam: PRESENT: normal external ear exam Mouth exam: PRESENT: moist Neck exam: PRESENT: full ROM Respiratory exam: PRESENT: clear to auscultation jorge Cardiovascular exam: PRESENT: RRR Pulses: PRESENT: normal radial pulses, normal femoral pulses Vascular exam: PRESENT: normal capillary refill GI/Abdominal exam: PRESENT: soft Rectal exam: PRESENT: deferred Gentrourinary exam: PRESENT: indwelling catheter Extremities exam: PRESENT: full ROM Musculoskeletal exam: PRESENT: full ROM Neurological exam: PRESENT: alert, awake, oriented to person, oriented to place Psychiatric exam: PRESENT: appropriate affect Skin exam: PRESENT: dry Results Laboratory Results: 10/27/19 05:09 10/27/19 05:09 10/26/19 10/27/19 10/27/19 08:54 05:09 05:09 WBC 6.0 RBC 3.81 L Hgb 11.4 L Hct 33.3 L MCV 87 MCH 29.9 MCHC 34.2 RDW 13.9 Plt Count 244 Seg Neutrophils % 74.5 Sodium 137.1 Potassium 4.5 Chloride 106 Carbon Dioxide 24 Anion Gap 7 BUN 14 Creatinine 0.99 Est GFR ( Amer) > 60 Glucose 167 H Calcium 8.8 Blood Type B POSITIVE Antibody Screen NEGATIVE Assessment & Plan - Time Time Spent with patient: 25-34 minutes - Plan Summary Plan Summary: pod 1 s/p right hemicolectomy c/o incisional pain no flatus lucio clears. 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
[2019-10-27] MEDS ORDERED: MORPHINE SULFATE 10 MG/ML INJ ONE (09:11)
[2019-10-27] MEDS ORDERED: HYDROMORPHONE HCL 30 MG/60 ML RTUINJ IV PRN (09:11)
[2019-10-27] MEDS ORDERED: HYDROMORPHONE HCL INJ/PF 2 MG/ML AMPULE IV ONE (10:00)
[2019-10-27] MEDS: KETOROLAC TROMETHAMINE INJ/PF 30 MG/1 ML SDV IV SCH ×3 (11:45→21:13)
[2019-10-27] MEDS: FAMOTIDINE INJ/PF 20 MG/2 ML SDV IV SCH ×2 (11:45→21:13)
[2019-10-27] MEDS: NORMAL SALINE 1000 ML 1,000 ML IV PRN (12:00)
[2019-10-27] MEDS ORDERED: ACETAMINOPHEN INJ/PF 1000 MG/100 ML SDV IV SCH (12:00)
[2019-10-27] MEDS: ACETAMINOPHEN 1,000 MG/100 ML RTUPB IV SCH ×2 (14:19→18:09)
[2019-10-27] MEDS: ONDANSETRON HCL INJ/PF 4 MG/2 ML SDV IV PRN (18:09)
[2019-10-28] MEDS: NORMAL SALINE 1000 ML 1,000 ML IV PRN ×3 (00:30→17:00)
[2019-10-28] MEDS: ACETAMINOPHEN 1,000 MG/100 ML RTUPB IV SCH ×4 (00:30→20:07)
[2019-10-28] MEDS: CEFAZOLIN SODIUM 1 GM in DEXTROSE 5%-WATER 50 ML IV SCH ×3 (01:01→17:26)
[2019-10-28] MEDS: METRONIDAZOLE 500 MG/NS RTU 500 MG/100 ML RTUPB IV SCH ×3 (01:35→18:32)
[2019-10-28] MEDS: ONDANSETRON HCL INJ/PF 4 MG/2 ML SDV IV PRN (02:04)
[2019-10-28] MEDS: KETOROLAC TROMETHAMINE INJ/PF 30 MG/1 ML SDV IV SCH ×4 (02:04→21:53)
[2019-10-28] MEDS: HEPARIN SOD (PORCINE) 5,000 UNIT/ML 1 ML VIAL SUBCUT SCH ×3 (05:19→21:52)
--- NOTE | 2019-10-28 08:18 | PDOC PROGRESS REPORT ---
Subjective Progress Note for:: 10/28/19 Subjective:: Still with incisional pain on the right side however this is improving over the course of the last 24 hours. Reason For Visit: C18.1 MALIGNANT NEOPLASM OF APPENDIX Physical Exam Vital Signs: Temp Pulse Resp BP Pulse Ox 98.3 F 74 17 137/80 H 98 10/28/19 03:37 10/28/19 03:37 10/28/19 07:00 10/28/19 03:37 10/28/19 07:00 Intake & Output 10/27/19 10/28/19 10/29/19 06:59 06:59 06:59 Intake Total 3200 2562 Output Total 2400 2870 Balance 800 -308 Weight 91.9 kg 90.5 kg General appearance: PRESENT: no acute distress Eye exam: PRESENT: EOMI Ear exam: PRESENT: normal external ear exam Mouth exam: PRESENT: moist Neck exam: PRESENT: full ROM Respiratory exam: PRESENT: clear to auscultation jorge Cardiovascular exam: PRESENT: RRR Pulses: PRESENT: normal femoral pulses, normal dorsalis pedis pul Breast: PRESENT: Normal GI/Abdominal exam: PRESENT: soft, other - Wound clean and dry Rectal exam: PRESENT: deferred Extremities exam: PRESENT: full ROM Neurological exam: PRESENT: alert, awake, oriented to person, oriented to place Psychiatric exam: PRESENT: appropriate affect Skin exam: PRESENT: dry Results Laboratory Results: 10/27/19 05:09 10/27/19 05:09 Assessment & Plan - Time Time Spent with patient: 25-34 minutes - Plan Summary Plan Summary: Patient status post right hemicolectomy for appendiceal carcinoma. Patient now passing flatus on postop day 2 however he did have urinary retention last night and required a Bond catheter. We will start patient on a full liquid diet today continue with Bond catheter
--- NOTE | 2019-10-28 08:40 | PDOC PROGRESS REPORT ---
Subjective Progress Note for:: 10/27/19 Subjective:: Doing well. Abdominal pain post op. Pain is controlled. No chest pain Reason For Visit: C18.1 MALIGNANT NEOPLASM OF APPENDIX Physical Exam Vital Signs: Temp Pulse Resp BP Pulse Ox 98.3 F 74 17 137/80 H 98 10/28/19 03:37 10/28/19 03:37 10/28/19 07:00 10/28/19 03:37 10/28/19 07:00 Intake & Output 10/27/19 10/28/19 10/29/19 06:59 06:59 06:59 Intake Total 3200 2562 Output Total 2400 2870 Balance 800 -308 Weight 91.9 kg 90.5 kg General appearance: PRESENT: no acute distress Head exam: PRESENT: atraumatic, normocephalic Eye exam: PRESENT: conjunctiva pink, EOMI Ear exam: PRESENT: normal external ear exam Mouth exam: PRESENT: moist, neck supple Neck exam: PRESENT: full ROM Respiratory exam: PRESENT: clear to auscultation jorge, unlabored Cardiovascular exam: PRESENT: RRR, +S1, +S2 Pulses: PRESENT: normal radial pulses GI/Abdominal exam: PRESENT: soft Rectal exam: PRESENT: deferred Neurological exam: PRESENT: alert, awake, oriented to person, oriented to place, oriented to time, oriented to situation Results Laboratory Results: 10/27/19 05:09 10/27/19 05:09 Assessment & Plan - Diagnosis (1) CAD (coronary artery disease) Qualifiers: Coronary Disease-Associated Artery/Lesion type: [place] artery [place] vs. transplanted heart: hug[place] heart Associated angina: without angina Qualified Code(s): I25.10 - Atherosclerotic heart disease of [place] coronary artery without angina pectoris Is this a current diagnosis for this admission?: Yes Plan: Resume Clopidogrel Already on ASA Chest pain free Continue GDMT for CAD (2) Hypertension Qualifiers: Hypertension type: essential hypertension Qualified Code(s): I10 - Essential (primary) hypertension Is this a current diagnosis for this admission?: Yes Plan: Stable. No medication changes
[2019-10-28] MEDS: FAMOTIDINE INJ/PF 20 MG/2 ML SDV IV SCH ×2 (11:03→21:54)
[2019-10-28] MEDS: MORPHINE SULFATE 10 MG/ML INJ IV PRN ×2 (11:18→18:39)
[2019-10-28] MEDS ORDERED: GLUCAGON,HUMAN RECOMB 1 MG INJ IM PRN (14:00)
[2019-10-28] MEDS ORDERED: DEXTROSE 40% GEL 15 GM TUBE PO PRN (14:00)
[2019-10-28] MEDS ORDERED: DEXTROSE 50%-WATER SYRINGE 12.5 GM/25 ML DOSE IV PRN (14:00)
[2019-10-28] MEDS ORDERED: DEXTROSE 40% GEL 15 GM TUBE X 2 PO PRN (14:00)
[2019-10-28] MEDS ORDERED: DEXTROSE 50%-WATER SYRINGE 25 GM/50 ML DOSE IV PRN (14:00)
[2019-10-28] MEDS: CLOPIDOGREL BISULFATE 75 MG TABLET PO SCH (14:26)
[2019-10-28] MEDS: PANTOPRAZOLE SODIUM 20 MG TABLET.DR PO SCH (14:27)
[2019-10-28] MEDS: INSULIN LISPRO 100 UNIT/ML 3 ML VIAL SUBCUT SCH ×2 (17:00→21:58)
[2019-10-29] MEDS: MORPHINE SULFATE 10 MG/ML INJ IV PRN (00:35)
[2019-10-29] MEDS: CEFAZOLIN SODIUM 1 GM in DEXTROSE 5%-WATER 50 ML IV SCH ×3 (02:28→17:30)
[2019-10-29] MEDS: METRONIDAZOLE 500 MG/NS RTU 500 MG/100 ML RTUPB IV SCH ×3 (03:01→18:21)
[2019-10-29] MEDS: KETOROLAC TROMETHAMINE INJ/PF 30 MG/1 ML SDV IV SCH ×4 (04:33→21:43)
[2019-10-29] MEDS: ACETAMINOPHEN 1,000 MG/100 ML RTUPB IV SCH ×5 (05:55→23:26)
[2019-10-29] MEDS: HEPARIN SOD (PORCINE) 5,000 UNIT/ML 1 ML VIAL SUBCUT SCH ×3 (05:55→21:43)
[2019-10-29] MEDS: INSULIN LISPRO 100 UNIT/ML 3 ML VIAL SUBCUT SCH ×4 (08:38→21:40)
--- NOTE | 2019-10-29 09:08 | PDOC PROGRESS REPORT ---
Subjective Progress Note for:: 10/29/19 Subjective:: feels better, less pain passng some flatus Reason For Visit: C18.1 MALIGNANT NEOPLASM OF APPENDIX Physical Exam Vital Signs: Temp Pulse Resp BP Pulse Ox 98.3 F 76 19 138/71 H 92 10/29/19 08:00 10/29/19 08:00 10/29/19 08:00 10/29/19 08:00 10/29/19 08:00 Intake & Output 10/28/19 10/29/19 10/30/19 06:59 06:59 06:59 Intake Total 2562 4342 Output Total 2870 2050 Balance -308 2292 Weight 90.5 kg 97.6 kg General appearance: PRESENT: no acute distress Head exam: PRESENT: normocephalic Eye exam: PRESENT: EOMI Ear exam: PRESENT: normal external ear exam Mouth exam: PRESENT: moist Neck exam: PRESENT: full ROM Respiratory exam: PRESENT: clear to auscultation jorge Cardiovascular exam: PRESENT: RRR Pulses: PRESENT: normal radial pulses, normal femoral pulses GI/Abdominal exam: PRESENT: soft Rectal exam: PRESENT: deferred Extremities exam: PRESENT: full ROM Musculoskeletal exam: PRESENT: full ROM Neurological exam: PRESENT: alert, awake, oriented to person, oriented to place Psychiatric exam: PRESENT: appropriate affect Skin exam: PRESENT: dry Results Laboratory Results: 10/27/19 05:09 10/27/19 05:09 Assessment & Plan - Time Time Spent with patient: 35 or more minutes - Plan Summary Plan Summary: doing well still no stool still with shah lucio full liquids passing flatus has not ambulated will add flowmax to meds cont shah till am advance diet dulcolax supp today will dc shah in am home tomorrow after bm.
[2019-10-29] MEDS: FAMOTIDINE INJ/PF 20 MG/2 ML SDV IV SCH ×2 (09:28→21:43)
[2019-10-29] MEDS ORDERED: BISACODYL 10 MG SUPP.RECT PR ONE (09:30)
[2019-10-29] MEDS: TAMSULOSIN HCL 0.4 MG CAP.SR.24H PO SCH (09:31)
[2019-10-29] MEDS: CLOPIDOGREL BISULFATE 75 MG TABLET PO SCH (09:32)
[2019-10-29] MEDS: PANTOPRAZOLE SODIUM 20 MG TABLET.DR PO SCH (09:32)
[2019-10-29] MEDS: NORMAL SALINE 1000 ML 1,000 ML IV PRN ×2 (10:04→17:30)
[2019-10-30] MEDS: CEFAZOLIN SODIUM 1 GM in DEXTROSE 5%-WATER 50 ML IV SCH ×3 (01:45→17:19)
[2019-10-30] MEDS: METRONIDAZOLE 500 MG/NS RTU 500 MG/100 ML RTUPB IV SCH ×3 (02:23→18:26)
[2019-10-30] MEDS: KETOROLAC TROMETHAMINE INJ/PF 30 MG/1 ML SDV IV SCH (02:24)
[2019-10-30] MEDS: NORMAL SALINE 1000 ML 1,000 ML IV PRN ×3 (02:25→17:19)
[2019-10-30] MEDS: HEPARIN SOD (PORCINE) 5,000 UNIT/ML 1 ML VIAL SUBCUT SCH ×3 (05:29→21:52)
[2019-10-30] MEDS: ACETAMINOPHEN 1,000 MG/100 ML RTUPB IV SCH (05:29)
--- NOTE | 2019-10-30 07:44 | PDOC PROGRESS REPORT ---
Subjective Progress Note for:: 10/30/19 Subjective:: feels ok didnt walk much yesterday no bm Reason For Visit: C18.1 MALIGNANT NEOPLASM OF APPENDIX Physical Exam Vital Signs: Temp Pulse Resp BP Pulse Ox 98.3 F 80 18 134/70 H 96 10/29/19 23:45 10/29/19 23:45 10/30/19 07:00 10/29/19 23:45 10/30/19 07:00 Intake & Output 10/29/19 10/30/19 10/31/19 06:59 06:59 06:59 Intake Total 4342 3259 Output Total 2050 1750 Balance 2292 1509 Weight 97.6 kg 95.7 kg General appearance: PRESENT: no acute distress Head exam: PRESENT: normocephalic Eye exam: PRESENT: EOMI Ear exam: PRESENT: TM's normal bilaterally Mouth exam: PRESENT: moist Neck exam: PRESENT: full ROM Respiratory exam: PRESENT: clear to auscultation jorge Cardiovascular exam: PRESENT: RRR Pulses: PRESENT: normal radial pulses, normal femoral pulses GI/Abdominal exam: PRESENT: soft Rectal exam: PRESENT: deferred Extremities exam: PRESENT: full ROM Musculoskeletal exam: PRESENT: full ROM Neurological exam: PRESENT: alert, awake, oriented to person, oriented to place Psychiatric exam: PRESENT: appropriate affect Skin exam: PRESENT: dry Results Laboratory Results: 10/27/19 05:09 10/27/19 05:09 Assessment & Plan - Time Time Spent with patient: 35 or more minutes - Plan Summary Plan Summary: still no bm passing flatus afeb vss plan fleets enema today linnea shah
[2019-10-30] MEDS: INSULIN LISPRO 100 UNIT/ML 3 ML VIAL SUBCUT SCH ×4 (08:15→21:51)
[2019-10-30 09:53] LABS: ABSOLUTE EOSINOPHILS # (AUTO) 0.1 10^3/uL (0.0-0.6); ABSOLUTE LYMPHOCYTES (AUTO) 0.7 10^3/uL (0.5-4.7); ABSOLUTE MONOCYTES (AUTO) 0.4 10^3/uL (0.1-1.4); ABSOLUTE NEUT (AUTO) 2.8 10^3/uL (1.7-8.2); BASOPHILS % (AUTO) 0.9 % (0-2); EOSINOPHILS % (AUTO) 2.6 % (0-6); HEMATOCRIT 28.2 % (37.9-51.0); HEMOGLOBIN 9.5 g/dL (13.5-17.0); LYMPHOCYTES % (AUTO) 16.6 % (13-45); MEAN CORPUSCULAR HEMOGLOBIN 29.7 pg (27.0-33.4); MEAN CORPUSCULAR HGB CONC 33.8 g/dL (32.0-36.0); MEAN CORPUSCULAR VOLUME 88 fl (80-97); MONOCYTES % (AUTO) 10.4 % (3-13); PLATELET COUNT 227 10^3/uL (150-450); RED BLOOD COUNT 3.21 10^6/uL (4.35-5.55); RED CELL DISTRIBUTION WIDTH 13.7 % (11.5-14.0); SEGMENTED NEUTROPHILS % (AUTO) 69.5 % (42-78); TOTAL CELLS COUNTED % (AUTO) 100 %
[2019-10-30] MEDS: PANTOPRAZOLE SODIUM 20 MG TABLET.DR PO SCH (09:54)
[2019-10-30] MEDS: TAMSULOSIN HCL 0.4 MG CAP.SR.24H PO SCH (09:55)
[2019-10-30] MEDS: CLOPIDOGREL BISULFATE 75 MG TABLET PO SCH (09:55)
[2019-10-30] MEDS: FAMOTIDINE INJ/PF 20 MG/2 ML SDV IV SCH ×2 (09:59→21:51)
[2019-10-30 10:20] LABS: ANION GAP 11 (5-19); BLOOD UREA NITROGEN 12 mg/dL (7-20); CALCIUM 8.1 mg/dL (8.4-10.2); CARBON DIOXIDE 18 mmol/L (22-30); CHLORIDE 108 mmol/L (98-107); GLUCOSE 105 mg/dL (75-110); POTASSIUM 3.7 mmol/L (3.6-5.0)
[2019-10-30] MEDS ORDERED: NA PHOS,M-B/NA PHOS,DI-BA (ADULT) 133 ML ENEMA PR ONE (11:00)
[2019-10-31] MEDS: NORMAL SALINE 1000 ML 1,000 ML IV PRN (01:36)
[2019-10-31] MEDS: METRONIDAZOLE 500 MG/NS RTU 500 MG/100 ML RTUPB IV SCH (01:36)
[2019-10-31] MEDS: CEFAZOLIN SODIUM 1 GM in DEXTROSE 5%-WATER 50 ML IV SCH (01:37)
[2019-10-31] MEDS: HEPARIN SOD (PORCINE) 5,000 UNIT/ML 1 ML VIAL SUBCUT SCH (06:14)
--- NOTE | 2019-10-31 07:56 | PDOC DISCHARGE SUMMARY ---
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 He was admitted for an elective right hemicolectomy. He tolerated the procedure well and had a routine benign postoperative course. He had return of bowel function approximately postop day 4 and was started on a regular diet. There was an issue with urinary retention which required Bond catheterization however this resolved with the use of Flomax. He is now tolerating a regular diet voiding without problems having bowel movements and ready for discharge home today. Final pathology still pending he will follow-up with me in the surgical clinic approximately 7 to 10 days after discharge he also has a follow-up with his oncologist. - Additional Information Resuscitation Status: Full Code Discharge Activity: Activity As Tolerated, No Lifting Over 10 Pounds - Patient needs a follow-up appointment with me in 7 to 10 days after discharge in surgery clinic as well as an appointment with Dr. Moises galeano for oncology in 2 to 3 weeks. Referrals: KARMA JENNINGS MD [Primary Care Provider] - Home Medications: Fexofenadine HCl 180 mg PO DAILY 10/30/18 Losartan Potassium 100 mg PO DAILY 10/30/18 Atorvastatin Calcium [Lipitor 80 mg Tablet] 80 mg PO QHS 06/12/19 Clopidogrel Bisulfate [Plavix 75 mg Tablet] 75 mg PO DAILY 06/12/19 Metformin HCl [Metformin HCl ER] 1,000 mg PO DAILY 06/12/19 Pantoprazole Sodium [Protonix [address] Tablet] 20 mg PO QAM 06/12/19 Sitagliptin Phosphate [Januvia 50 mg Tablet] 50 mg PO DAILY 06/12/19 Amlodipine Besylate [Norvasc 5 mg Tablet] 5 mg PO DAILY 08/03/19 Aspirin [Aspirin 81 mg Chewable Tablet] 1 tab PO DAILY 10/19/19 Sildenafil Citrate [Viagra] 100 mg PO ASDIR PRN 10/19/19 Empagliflozin [Jardiance] 25 mg PO DAILY 10/26/19 Exenatide Microspheres [Bydureon Bcise] 2 mg SUBCUT .QWEEKLY 10/26/19 History of Present Illiness History of Present Illness: HALEY KENNEDY is a 73 year old male Physical Exam Vital Signs: Temp Pulse Resp BP Pulse Ox 98.7 F 75 18 141/79 H 96 10/30/19 23:57 10/30/19 23:57 10/31/19 07:00 10/30/19 23:57 10/31/19 07:00 Intake & Output 10/30/19 10/31/19 11/01/19 06:59 06:59 06:59 Intake Total 3259 4092 Output Total 2010 1725 Balance 1509 2367 Weight 95.7 kg 99.9 kg Results Laboratory Results: WBC 4.0 10^3/uL (4.0-10.5) 10/30/19 08:52 RBC 3.21 10^6/uL (4.35-5.55) L 10/30/19 08:52 Hgb 9.5 g/dL (13.5-17.0) L 10/30/19 08:52 Hct 28.2 % (37.9-51.0) L 10/30/19 08:52 MCV 88 fl (80-97) 10/30/19 08:52 MCH 29.7 pg (27.0-33.4) 10/30/19 08:52 MCHC 33.8 g/dL (32.0-36.0) 10/30/19 08:52 RDW 13.7 % (11.5-14.0) 10/30/19 08:52 Plt Count 227 10^3/uL (150-450) 10/30/19 08:52 Lymph % (Auto) 16.6 % (13-45) 10/30/19 08:52 [place] % (Auto) 10.4 % (3-13) 10/30/19 08:52 Eos % (Auto) 2.6 % (0-6) 10/30/19 08:52 Baso % (Auto) 0.9 % (0-2) 10/30/19 08:52 Absolute Neuts (auto) 2.8 10^3/uL (1.7-8.2) 10/30/19 08:52 Absolute Lymphs (auto) 0.7 10^3/uL (0.5-4.7) 10/30/19 08:52 Absolute Monos (auto) 0.4 10^3/uL (0.1-1.4) 10/30/19 08:52 Absolute Eos (auto) 0.1 10^3/uL (0.0-0.6) 10/30/19 08:52 Absolute Basos (auto) 0.0 10^3/uL (0.0-0.2) 10/30/19 08:52 Seg Neutrophils % 69.5 % (42-78) 10/30/19 08:52 PT 13.3 SEC (11.4-15.4) 10/26/19 08:09 INR 1.01 10/26/19 08:09 APTT 30.9 SEC (23.5-35.8) 10/26/19 08:09 Sodium 137.0 mmol/L (137-145) 10/30/19 08:52 Potassium 3.7 mmol/L (3.6-5.0) 10/30/19 08:52 Chloride 108 mmol/L (98-107) H 10/30/19 08:52 Carbon Dioxide 18 mmol/L (22-30) L 10/30/19 08:52 Anion Gap 11 (5-19) 10/30/19 08:52 BUN 12 mg/dL (7-20) 10/30/19 08:52 Creatinine 0.68 mg/dL (0.52-1.25) 10/30/19 08:52 Est GFR ( Amer) > 60 (>60) 10/30/19 08:52 Est GFR (MDRD) Non-Af > 60 (>60) 10/30/19 08:52 Glucose 105 mg/dL (75-110) 10/30/19 08:52 POC Glucose 126 mg/dL (70-110) H 10/31/19 07:21 Calcium 8.1 mg/dL (8.4-10.2) L 10/30/19 08:52 Blood Type B POSITIVE 10/26/19 08:54 Antibody Screen NEGATIVE 10/26/19 08:54
[2019-10-31] MEDS: INSULIN LISPRO 100 UNIT/ML 3 ML VIAL SUBCUT SCH (08:06)
[2019-10-31] MEDS: PANTOPRAZOLE SODIUM 20 MG TABLET.DR PO SCH (08:10)
[2019-10-31 08:28] LABS: ABSOLUTE EOSINOPHILS # (AUTO) 0.2 10^3/uL (0.0-0.6); ABSOLUTE MONOCYTES (AUTO) 0.5 10^3/uL (0.1-1.4); ABSOLUTE NEUT (AUTO) 2.6 10^3/uL (1.7-8.2); BASOPHILS % (AUTO) 0.6 % (0-2); EOSINOPHILS % (AUTO) 3.7 % (0-6); HEMATOCRIT 30.1 % (37.9-51.0); HEMOGLOBIN 10.3 g/dL (13.5-17.0); LYMPHOCYTES % (AUTO) 22.6 % (13-45); MEAN CORPUSCULAR HEMOGLOBIN 29.9 pg (27.0-33.4); MEAN CORPUSCULAR HGB CONC 34.2 g/dL (32.0-36.0); MEAN CORPUSCULAR VOLUME 87 fl (80-97); PLATELET COUNT 260 10^3/uL (150-450); RED BLOOD COUNT 3.44 10^6/uL (4.35-5.55); RED CELL DISTRIBUTION WIDTH 13.8 % (11.5-14.0); SEGMENTED NEUTROPHILS % (AUTO) 61.1 % (42-78); TOTAL CELLS COUNTED % (AUTO) 100 %; WHITE BLOOD COUNT 4.2 10^3/uL (4.0-10.5)
[2019-10-31 08:55] VITALS: BP 127/73
== END 2019-10-31 10:04 | disposition home or self-care (01) | DRG 331 ==
LOC: INOR 08:01 → 3S 17:34 → 5 10-28 03:45
PROVIDERS: ADMIT Surgery; ATTEND Surgery
PROC: 0DB84ZZ Excision of Small Intestine, Percutaneous Endoscopic Approach (ICD-10-PCS; 2019-10-26)
PROC: 0DTF4ZZ Resection of Right Large Intestine, Percutaneous Endoscopic Approach (ICD-10-PCS; principal; 2019-10-26 10:00)
DX: C18.1 Malignant neoplasm of appendix (principal); E11.9 Type 2 diabetes mellitus without complications; R33.9 Retention of urine, unspecified; I10 Essential (primary) hypertension; E78.5 Hyperlipidemia, unspecified; I25.10 Atherosclerotic heart disease of native coronary artery without angina pectoris; I48.91 Unspecified atrial fibrillation; H91.90 Unspecified hearing loss, unspecified ear; Q43.0 Meckel's diverticulum (displaced) (hypertrophic); Z79.02 Long term (current) use of antithrombotics/antiplatelets; Z79.84 Long term (current) use of oral hypoglycemic drugs; Z79.82 Long term (current) use of aspirin; Z96.651 Presence of right artificial knee joint; Z95.5 Presence of coronary angioplasty implant and graft; Z95.818 Presence of other cardiac implants and grafts; Z85.048 Personal history of other malignant neoplasm of rectum, rectosigmoid junction, and anus; Z86.73 Personal history of transient ischemic attack (TIA), and cerebral infarction without residual deficits; Z82.49 Family history of ischemic heart disease and other diseases of the circulatory system; Z87.891 Personal history of nicotine dependence
CPT/HCPCS: 36415; 790; 80048; 82962; 85025; 85610; 85730; 86850; 86900; 86901; 88302; 88307; 88309; 94799; C9290; J0131; J0330; J0360; J0690; J1100; J1170; J1644; J1815; J1885; J2250; J2270; J2405; J2704; J2710; J3010; J3490; J7030; J7060; S0028

== ENCOUNTER → 2020-03-27 | Outpatient (CLI) | payer MEDICARE, OTHER ==
--- NOTE | 2020-03-27 11:32 | RADIOLOGY REPORT (SQ) ---
EXAM DESCRIPTION: CT CHEST WITH; CT ABD/PELVIS WITH IV ORAL IMAGES COMPLETED DATE/TIME: 03/27/2020 9:46 am REASON FOR STUDY: COLON CA (C18.2) C18.2 MALIGNANT NEOPLASM OF ASCENDING COLON CONTRAST TYPE AND DOSE: contrast/concentration: Isovue 350.00 mg/ml; Total Contrast Delivered: 90.0 ml; Total Saline Delivered: 70.0 ml RENAL FUNCTION: Creatinine 0.8 COMPARISON: PET-CT dated 09/24/2019, CT chest dated 08/25/2019 TECHNIQUE: CT scan of the chest performed using helical scanning technique with dynamic intravenous contrast injection. Images reviewed with lung, soft tissue and bone windows. Reconstructed coronal a nd sagittal MPR images reviewed. All images stored on PACS. All CT scanners at this facility use dose modulation, iterative reconstruction, and/or weight based d osing when appropriate to reduce radiation dose to as low as reasonably achievable (ALARA). [facility]: Dose Right [facility]: CareDose [facility]: Dose Right [facility]: Teradose 4D [facility]: [employer] RADIATION DOSE: CT Rad equipment meets quality standard of care and radiation dose reduction techniq ues were employed. CTDIvol: 7.5 - 8.7 mGy. DLP: 1247 mGy-cm. . LIMITATIONS: None. FINDINGS: AXILLAE: Small stable bilateral axillary lymph nodes. These were non metabolic on recent PET-CT. CHEST WALL: No masses. No subcutaneous air. LUNGS: Small stable nonspecific pulmonary nodules. No increase in number or size since prior study. PLEURA: No effusions. No calcifications. THYROID: No masses or significant asymmetry. HILAR AND MEDIASTINAL STRUCTURES: No identified masses or abnormal nodes. AORTA AND GREAT VESSELS: No aneurysm. No dissection. PULMONARY ARTERIES: No identified pulmonary emboli. Study not optimized for the pulmonary arteries. HEART: No pericardial effusion. HARDWARE AND LIFELINES: None. BONES: No significant finding. OTHER: No other significant finding. IMPRESSION: Stable small pulmonary nodules most marked on the right. These are nonspecific. No new findings. COMPARISON: None. RADIATION DOSE: CT Rad equipment meets quality standard of care and radiation dose reduction techniq ues were employed. CTDIvol: 7.5 - 8.7 mGy. DLP: 1247 mGy-cm. mGy. TECHNIQUE: CT scan of the abdomen and pelvis performed with intravenous and oral contrast using halina fabian scanning technique with dynamic intravenous contrast injection. Images reviewed with lung, soft tissue and bone windows. Reconstructed coronal and sagittal MPR images reviewed. Delayed images for evaluation of the urinary system also acquired and evaluated. All images stored on PACS. All CT scanners at this facility use dose modulation, iterative reconstruction, and/or weight based d osing when appropriate to reduce radiation dose to as low as reasonably achievable (ALARA). [facility]: Dose Right [facility]: [employer] [facility]: Dose Right [facility]: Teradose 4D [facility]: TIDAL PETROLEUM FINDINGS: LIVER: Normal size. No masses. No dilated ducts. SPLEEN: Normal size. No focal lesions. PANCREAS: No masses. No significant calcifications. No adjacent inflammation or peripancreatic flui d collections. Pancreatic duct not dilated. GALLBLADDER: No identified stones by CT criteria. No inflammatory changes to suggest cholecystitis. ADRENAL GLANDS: Bilateral adrenal fullness which is unchanged and most likely hyperplasia. RIGHT KIDNEY AND URETER: No solid masses. Stable stone in the lower pole the right kidney. No hyd ronephrosis or hydroureter. LEFT KIDNEY AND URETER: No solid masses. No significant calcifications. No hydronephrosis or hydr oureter. AORTA AND VESSELS: No aneurysm. No dissection. Renal arteries, SMA, celiac without stenosis. RETROPERITONEUM: No retroperitoneal adenopathy, hemorrhage or masses. LARGE AND SMALL BOWEL: Thickened distal small bowel with surrounding mesenteric inflammation. This i s new from recent PET. This could represent infectious or inflammatory process. Neoplasm cannot be excluded. APPENDIX: Surgically absent. ABDOMINAL WALL: No hernia or masses. PERITONEAL CAVITY: No free air. No free fluid. Small right-sided peritoneal nodes. These are nonsp ecific and could be reactive or neoplastic. PELVIS: No mass or free fluid. Normal bladder. BONES: No significant or acute findings. OTHER: No other significant finding. IMPRESSION: Thickening of the distal small bowel with surrounding inflammation. This could represen t infectious or inflammatory process. Neoplasm cannot be excluded. There are a few small associated mesenteric nodes. This is a new finding from the patient's PET-CT. TECHNICAL DOCUMENTATION: JOB ID: [id number] Quality ID # 436: Final reports with documentation of one or more dose reduction techniques (e.g., Au tomated exposure control, adjustment of the mA and/or kV according to patient size, use of iterative reconstruction technique) 2010 [email or web address]- All Rights Reserved Reading location - IP/workstation name: [email or web address]
== END ==
LOC: RAD 08:39
PROVIDERS: ATTEND Internal Medicine
DX: C18.2 Malignant neoplasm of ascending colon (principal)
CPT/HCPCS: 71260; 74177; 82565

== ENCOUNTER → 2020-06-28 | Outpatient (CLI) | payer MEDICARE, OTHER ==
--- NOTE | 2020-06-28 14:49 | RADIOLOGY REPORT (SQ) ---
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 Images reviewed with lung, soft tissue and bone windows. Reconstructed coronal and sagittal MPR and MIP images reviewed. All images stored on PACS. All CT scanners at this facility use dose modulation, iterative reconstruction, and/or weight based d osing when appropriate to reduce radiation dose to as low as reasonably achievable (ALARA). [facility]: Dose Right [facility]: CareDose [facility]: Dose Right [facility]: Teradose 4D [facility]: [employer] CONTRAST TYPE AND DOSE: contrast/concentration: Isovue 350.00 mmol/ml; Total Contrast Delivered: 80. 0 ml; Total Saline Delivered: 44.9 ml RENAL FUNCTION: Creatinine 1.5 RADIATION DOSE: . LIMITATIONS: None. FINDINGS: LUNGS AND PLEURA: No focal airspace disease. No pleural effusion or pneumothorax. New no nspecific left upper lobe perifissural nodule measuring 4 mm (series 6, image 78). Stable additional nonspecific bilateral subcentimeter pulmonary nodules. For reference 4 mm right lower lobe pulmonar y nodule (series 6, image 75). HILAR AND MEDIASTINAL STRUCTURES: No identified masses or abnormal nodes. HEART AND VASCULAR STRUCTURES: Normal heart size. No pericardial effusion. Scattered coronary ather osclerosis. HARDWARE: Loop recorder overlies left chest subcutaneous tissues. UPPER ABDOMEN: See same-day abdomen CT. THYROID AND OTHER SOFT TISSUES: No masses. No adenopathy. BONES: No significant finding. OTHER: No other significant finding. IMPRESSION: 1. New nonspecific 4 mm left upper lobe perifissural nodule. Recommend attention on co ntinued follow-up. Stable additional nonspecific bilateral small subcentimeter pulmonary nodules. 2. No evidence of acute intrathoracic process. TECHNICAL DOCUMENTATION: JOB ID: [id number] Quality ID # 436: Final reports with documentation of one or more dose reduction techniques (e.g., Au tomated exposure control, adjustment of the mA and/or kV according to patient size, use of iterative reconstruction technique) 2010 [employer]- All Rights Reserved Reading location - IP/workstation name: [email or web address]
--- NOTE | 2020-06-28 19:15 | RADIOLOGY REPORT (SQ) ---
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 Pamela motherapy. COMPARISON: CT abdomen and pelvis, 8 03/27/2019. PET CT, 09/24/2019. CT chest, abdomen and pelvis, 03/27/2020. TECHNIQUE: CT scan of the abdomen and pelvis performed using helical scanning technique with dynamic intravenous contrast injection. No oral contrast. Images reviewed with lung, soft tissue, and bone windows. Reconstructed coronal and sagittal MPR images reviewed. Delayed images for evaluation of the urinary system also acquired. All images stored on PACS. All CT scanners at this facility use dose modulation, iterative reconstruction, and/or weight based d osing when appropriate to reduce radiation dose to as low as reasonably achievable (ALARA). [facility]: Dose Right [facility]: CareDose [facility]: Dose Right [facility]: Teradose 4D [facility]: [employer] CONTRAST TYPE AND DOSE: 80 mL Omnipaque 350- low osmolar. RENAL FUNCTION: GFR > 60. RADIATION DOSE: CT Rad equipment meets quality standard of care and radiation dose reduction techniq ues were employed. CTDIvol: 6.5 - 8.1 mGy. DLP: 1111 mGy-cm.. LIMITATIONS: None. FINDINGS: LOWER CHEST: Please see separate dictation chest CT same date LIVER: Liver has normal size and contour. No focal hepatic mass. Hepatic and portal veins are paten t. No biliary ductal dilation. SPLEEN: Normal size. No focal lesions. PANCREAS: No masses. No significant calcifications. No adjacent inflammation or peripancreatic fluid collections. Pancreatic duct not dilated. GALLBLADDER: No identified stones by CT criteria. No inflammatory changes to suggest cholecystitis. ADRENAL GLANDS: No significant masses or asymmetry. RIGHT KIDNEY AND URETER: No solid masses. Nonobstructing right inferior pole renal calculus is unch anged. No obstructing renal or ureteral calculus. No hydronephrosis or hydroureter. LEFT KIDNEY AND URETER: No solid masses. No significant calcifications. No hydronephrosis or hydr oureter. AORTA AND VESSELS: No aneurysm. No dissection. Renal arteries, SMA, celiac without stenosis. RETROPERITONEUM: No retroperitoneal adenopathy, hemorrhage or masses. BOWEL AND PERITONEAL CAVITY: Status post right hemicolectomy with ileocecal anastomosis. The distal ileum demonstrates mild wall thickening with surrounding inflammatory change, significantly improved from previous examination however still present. There is mild associated mesenteric edema. No santiago l obstruction. No other bowel wall thickening. No pneumoperitoneum. No ascites or peritoneal mass. APPENDIX: Surgically absent. PELVIS: No mass. No free fluid. Normal bladder. ABDOMINAL WALL: No masses. No hernias. BONES: No significant or acute findings. OTHER: No other significant finding. IMPRESSION: 1. Improved but persistent wall thickening and inflammatory change involving the terminal ileum at th e ileocecal anastomosis. This may be reactive due to reflux at the anastomosis, infectious or inflam matory etiologies should also be considered. 2. No bowel obstruction. No evidence of recurrent or metastatic disease in the abdomen or pelvis. 3. Nonobstructing right renal calculus. TECHNICAL DOCUMENTATION: JOB ID: [id number] Quality ID # 436: Final reports with documentation of one or more dose reduction techniques (e.g., Au tomated exposure control, adjustment of the mA and/or kV according to patient size, use of iterative reconstruction technique) 2010 [employer]- All Rights Reserved Reading location - IP/workstation name: [email or web address]
== END ==
LOC: RAD 13:50
PROVIDERS: ATTEND Internal Medicine
DX: C18.2 Malignant neoplasm of ascending colon (principal)
CPT/HCPCS: 71260; 74177; 82565

== ENCOUNTER 2020-11-07 10:05 | Day surgery (SDC) | payer MEDICARE, OTHER ==
--- NOTE | 2020-11-04 12:44 | EKG REPORT ---
SEVERITY:- BORDERLINE ECG - SINUS RHYTHM : Confirmed by: Glenn Valdez MD 04-Nov-2020 12:43:54
[~2020-11-07 10:05] MED LIST changes: -CEFAZOLIN SODIUM 1 GM in DEXTROSE 5%-WATER 50 ML IV PRN; +LIDOCAINE 0.5% INJ-PF (5 MG/ML) 50 ML SDV SUBCUT PRN; -METRONIDAZOLE 500 MG/NS RTU 500 MG/100 ML RTUPB IV PRN; +PROPOFOL INJ 200 MG/20 ML VIAL IV ONE
--- NOTE | 2020-11-07 12:54 | Operative Report ---
Nonrecallable Operative Report DATE OF SURGERY: 11/07/20 PREOPERATIVE DIAGNOSIS: hx of appendicial cancer POSTOPERATIVE DIAGNOSIS: same OPERATION: screening colonoscopy SURGEON: DEVANG BAH ANESTHESIA: LMAC TISSUE REMOVED OR ALTERED: none COMPLICATIONS: none ESTIMATED BLOOD LOSS: 0 INTRAOPERATIVE FINDINGS: see note PROCEDURE: 0 Patient was brought to the operating room awake alert in stable condition placed in left lateral decubitus position and given a moderate sedation by anesthesia. After appropriate timeout and site verification the procedure commenced. Olympus colonoscope was passed into the rectum and easily traversed the rectum into the descending colon we traversed the descending colon to to the hepatic flexure then the mid transverse colon where we reached the previous anastomosis. The anastomosis appeared to be normal there was some stool emanating from the small bowel as we slowly withdrew the scope we examined the remainder of the transverse colon as well as the splenic flexure and then the descending colon down to the sigmoid colon rectum and anus. There was no evidence of mucosal abnormalities with grade 2 hemorrhoids. The patient was then transported to recovery in stable condition Impression #1. Normal screening colonoscopy 1 year status post right hemicolectomy for appendiceal carcinoma. 2. Recommendation repeat colonoscopy in 3 years.
--- NOTE | 2020-11-07 12:56 | Discharge Summary ---
Discharge Summary (SDC) - Discharge Final Diagnosis: History of colon cancer Date of Surgery: 11/07/20 Discharge Date: 11/07/20 Condition: Good Referrals: KARMA JENNINGS MD [Primary Care Provider] - Discharge Diet: As Tolerated Discharge Activity: Activity As Tolerated Report the Following to Your Physician Immediately: Increase in Pain, Unusual Bleeding
[2020-11-07 14:32] VITALS: BP 128/82
== END 2020-11-07 13:50 | disposition home or self-care (01) ==
LOC: OROUT 10:05
PROVIDERS: ATTEND Surgery
DX: Z12.11 Encounter for screening for malignant neoplasm of colon (principal); K64.1 Second degree hemorrhoids; Z85.038 Personal history of other malignant neoplasm of large intestine; Z90.49 Acquired absence of other specified parts of digestive tract; Z95.5 Presence of coronary angioplasty implant and graft; I48.91 Unspecified atrial fibrillation; Z01.812 Encounter for preprocedural laboratory examination; Z20.828 Contact with and (suspected) exposure to other viral communicable diseases; Z92.21 Personal history of antineoplastic chemotherapy; Z87.891 Personal history of nicotine dependence; I10 Essential (primary) hypertension; Z86.73 Personal history of transient ischemic attack (TIA), and cerebral infarction without residual deficits; E11.9 Type 2 diabetes mellitus without complications; Z95.818 Presence of other cardiac implants and grafts; Z79.84 Long term (current) use of oral hypoglycemic drugs; Z79.02 Long term (current) use of antithrombotics/antiplatelets
CPT/HCPCS: 93005; 82962; 93010; 45378; U0003; J2704; C9803; 87635

== ENCOUNTER → 2020-11-19 | Outpatient (CLI) | payer MEDICARE, OTHER ==
--- NOTE | 2020-11-19 16:41 | RADIOLOGY REPORT (SQ) ---
EXAM DESCRIPTION: TOE LEFT IMAGES COMPLETED DATE/TIME: 11/19/2020 3:44 pm REASON FOR STUDY: (M79.675)PAIN IN LEFT TOE(S) M79.675 PAIN IN LEFT TOE(S) COMPARISON: None. NUMBER OF VIEWS: Three views. TECHNIQUE: AP, lateral, and oblique images acquired of the left fifth toe. LIMITATIONS: None. FINDINGS: MINERALIZATION: Normal. BONES: No acute fracture or dislocation. No worrisome bone lesions. JOINTS: No effusions. Mild degenerative changes are seen of the great toe metatarsophalangeal joint. SOFT TISSUES: Mild soft tissue thickening is seen lateral to the 5th digit metatarsophalangeal joint. OTHER: No other significant finding. IMPRESSION: Mild soft tissue thickening is seen lateral to the 5th digit metatarsophalangeal joint w ithout associated osseous erosions or significant degenerative changes. Mild degenerative changes of the great toe metatarsophalangeal joint. COMMENT: SITE OF TRAUMA/COMPLAINT MARKED/STAMP COMPLETED: NO. TECHNICAL DOCUMENTATION: JOB ID: [id number] 2010 [employer]- All Rights Reserved Reading location - IP/workstation name: [email or web address]
== END ==
LOC: RAD 15:17
PROVIDERS: ATTEND Physician Assistant
DX: M19.072 Primary osteoarthritis, left ankle and foot (principal); M79.675 Pain in left toe(s)